=== PATIENT | female | born 1935 | race Caucasian/White ===

== ENCOUNTER 2018-03-23 19:42 | Inpatient (IN) | payer MEDICARE, OTHER ==
[2018-03-23] MEDS ORDERED: morphine 4 MG/ML VIAL (19:50)
[2018-03-23] MEDS ORDERED: FUROSEMIDE 40 MG INJ (19:50)
[2018-03-23] MEDS: NITROGLYCERIN 50 MG/D5W (PMX) 250 ML IV (19:50)
[2018-03-23] MEDS: ONDANSETRON 4 MG INJ IV (19:53)
[2018-03-23] MEDS: FUROSEMIDE 40 MG INJ IV (19:53)
[2018-03-23] MEDS: NITROGLYCERIN 2% 1 GM OINT PKT TD (19:53)
[2018-03-23] MEDS: IPRATROPIUM (NEB) 0.5 MG/2.5 ML AMP INH (20:00)
[2018-03-23] MEDS: ALBUTEROL 0.5% (NEB) 2.5 MG/0.5 ML AMP INH (20:00)
[2018-03-23] MEDS: METHYLPREDNISOLONE 125 MG INJ IV (20:02)
[2018-03-23] MEDS: MAGNESIUM SULFATE 2 GM/50 ML 50 ML IVPB (20:02)
[2018-03-23] MEDS: morphine 2 MG INJ IV (20:03)
[2018-03-23 20:05] LABS: ABNORMAL IP MESSAGE 1; HEMATOCRIT 45.2 % (37.0-47.0); HEMOGLOBIN 13.5 g/dl (12.0-16.0); MEAN CORPUSCULAR HEMOGLOBIN 27.7 pg (29.0-33.0); MEAN CORPUSCULAR HGB CONC 29.9 g/dl (32.0-37.0); MEAN CORPUSCULAR VOLUME 92.8 fl (82.0-101.0); MEAN PLATELET VOLUME 11.1 fl (7.4-10.4); PLATELET COUNT 126 10^3/UL (140-415); RED BLOOD COUNT 4.87 10^6/ul (4.20-5.40); RED CELL DISTRIBUTION WIDTH 15.1 % (11.5-14.5)
[2018-03-23 20:05] LABS: WHITE BLOOD COUNT 20.8 10^3/ul (4.8-10.8)
[2018-03-23 20:12] LABS: ADD MAN DIFF? YES; POSITIVE DIFF @See below
[2018-03-23] MEDS: CEFTRIAXONE 1 GM/50 ML (PMX) 50 ML IVPB (20:29)
[2018-03-23 20:32] LABS: ALANINE AMINOTRANSFERASE 11 IU/L (13-69); ALBUMIN 4.4 g/dl (3.3-4.9); ALBUMIN/GLOBULIN RATIO 1.25; ALKALINE PHOSPHATASE 106 IU/L (42-121); ANION GAP 17 (8-16); ASPARTATE AMINO TRANSFERASE 24 IU/L (15-46); BILIRUBIN,INDIRECT 0.3 mg/dl (0-1.1); BILIRUBIN,TOTAL 0.3 mg/dl (0.2-1.3); BLOOD UREA NITROGEN 27 mg/dl (7-20); CALCIUM 8.8 mg/dl (8.4-10.2); CARBON DIOXIDE 19 mmol/L (21-31); CHLORIDE 105 mmol/L (97-110); CREATININE 1.36 mg/dl (0.44-1.00); GLUCOSE 258 mg/dl (70-220); POTASSIUM 4.4 mmol/L (3.5-5.1); SODIUM 137 mmol/L (135-144); TOTAL PROTEIN 7.9 g/dl (6.1-8.1)
[2018-03-23 20:44] LABS: B-TYPE NATRIURETIC PEPTIDE 1850 PG/ML (0-450); TROPONIN-I 0.031 ng/ml (0.000-0.120)
[2018-03-23] MEDS: AZITHROMYCIN 500MG/NS (PMX) 250 ML IV (20:52)
[2018-03-23 20:58] LABS: INR 0.84; PROTIME 11.6 Sec (11.9-14.9); PT RATIO 0.9
[2018-03-23 20:59] LABS: PARTIAL THROMBOPLASTIN TIME 28.7 Sec (25.0-35.0)
[2018-03-23] MEDS ORDERED: ACETAMINOPHEN 650MG/20.3ML CUP PO (21:00)
[2018-03-23] MEDS: FUROSEMIDE 20 MG INJ IV (21:00)
[2018-03-23] MEDS: IMIPRAMINE 25 MG TAB PO (21:00)
[2018-03-23] MEDS: LISINOPRIL 10 MG TAB PO (21:00)
[2018-03-23 21:04] LABS: ANISOCYTOSIS 1+ (0-0); EOSINOPHILS % (M) 8 % (0-7); GIANT THROMBO% (M) 1 % (0-0); LYMPHOCYTES #M 7.2 10^3/ul (0.8-2.9); LYMPHOCYTES % (M) 35 % (15-51); METAMYELOCYTES #M 0.4 10^3/ul (0.0-0.0); METAMYELOCYTES %M 2 % (0-0); MICROCYTOSIS 1+ (0-0); MONOCYTE #M 0.4 10^3/ul (0.3-0.9); MONOCYTES % (M) 2 % (0-11); MYELOCYTES #M 0.4 10^3/ul (0.0-0.0); MYELOCYTES % (M) 2 % (0-0); PLATELET ESTIMATE NORMAL; POIKILOCYTOSIS 1+ (0-0); POLYCHROMASIA 1+ (0-0); REACTIVE LYMPHOCYTES #M 1.4 10^3/ul (0.0-0.0); REACTIVE LYMPHOCYTES% (M) 7 % (0-0); SEGMENTED NEUTROPHILS (M) % 44 % (39-77); SMUDGE%M 4 % (0-0)
[2018-03-23 21:22] LABS: AADO2 Arterial 340.5 mmHg (7.0-24.0); Arterial Base Excess -3.6 mmol/L (-3.0-3); Arterial Blood Gas Oxygen Sat 99.6 mmHG (95.0-100.0); Arterial COHb 0.3 % (0.0-3.0); Arterial HCO3 23.9 mmol/L (22.0-26.0); Arterial MetHb 0.3 % (0.0-1.5); Arterial Total Hemglobin 13.3 g/dl (12.0-18.0); Arterial pCO2 52.9 mmhg (35-45); Blood Gas IEPAP 15/5; Blood Gas PS 10; MODE MASK - BIPAP; Site LB
[2018-03-23 21:47] LABS: HEMOGLOBIN A1C 6.5 % (0-5.9)
[2018-03-23] MEDS: FAMOTIDINE 20 MG INJ IV (21:59)
[2018-03-23] MEDS ORDERED: GLUCAGON 1 MG INJ IM (22:00)
[2018-03-23] MEDS ORDERED: GLUCOSE GEL 15 GRAM TUBE BUCCAL (22:00)
[2018-03-23] MEDS ORDERED: DEXTROSE 50% 50 ML SYRINGE IV ×2 (22:00)
[2018-03-23] MEDS ORDERED: GLUCOSE GEL 15 GRAM TUBE PO ×2 (22:00)
[2018-03-23 22:11] LABS: ANION GAP 13 (8-16); BLOOD UREA NITROGEN 29 mg/dl (7-20); CALCIUM 8.3 mg/dl (8.4-10.2); CARBON DIOXIDE 23 mmol/L (21-31); CHLORIDE 108 mmol/L (97-110); CREATININE 1.33 mg/dl (0.44-1.00); GLUCOSE 241 mg/dl (70-220); POTASSIUM 5.2 mmol/L (3.5-5.1); SODIUM 139 mmol/L (135-144)
[2018-03-23] MEDS: MONTELUKAST 10 MG TAB PO (23:14)
[2018-03-23] MEDS: ALBUTEROL 0.083% (NEB) 2.5 MG/3 ML AMP NEB (23:15)
[2018-03-23] MEDS: [UNRECOGNIZED DRUG - REMARK] XX (23:30)
[2018-03-24] MEDS: ATORVASTATIN 40 MG TAB PO ×2 (00:10→20:54)
[2018-03-24 00:50] LABS: LACTIC ACID 2.1 mmol/L (0.5-2.0)
[2018-03-24 00:53] LABS: CREATINE KINASE 83 IU/L (23-200)
[2018-03-24 01:06] LABS: CK INDEX 5.2; CK-MB 4.35 ng/ml (0.0-2.4)
[2018-03-24 01:11] LABS: TROPONIN-I 0.288 ng/ml (0.000-0.120)
[2018-03-24] MEDS: ALBUTEROL 0.083% (NEB) 2.5 MG/3 ML AMP NEB ×6 (01:32→20:38)
[2018-03-24] MEDS: ACCU-CHEK XX (02:06)
[2018-03-24 07:14] LABS: AADO2 Arterial 126.9 mmHg (7.0-24.0); Arterial Base Excess -1.3 mmol/L (-3.0-3); Arterial Blood Gas Oxygen Sat 97.7 mmHG (95.0-100.0); Arterial COHb 0.1 % (0.0-3.0); Arterial Fraction of Oxyhgb 97.3 % (93.0-99.0); Arterial HCO3 24.6 mmol/L (22.0-26.0); Arterial MetHb 0.3 % (0.0-1.5); Arterial Total Hemglobin 12.5 g/dl (12.0-18.0); Arterial pCO2 45.8 mmhg (35-45); Blood Gas IEPAP 15/5; Blood Gas PS 10; MODE MASK - BIPAP; Site LB
[2018-03-24] MEDS: CLOPIDOGREL 75 MG TAB PO (08:56)
[2018-03-24] MEDS: ASPIRIN 81 MG TAB PO (08:56)
[2018-03-24] MEDS: GLIMEPIRIDE 2 MG TAB PO (08:57)
[2018-03-24] MEDS: predniSONE 20 MG TAB PO (08:57)
[2018-03-24] MEDS: SPIRONOLACTONE 25 MG TAB PO (08:58)
[2018-03-24] MEDS: MEMANTINE 10 MG TAB PO ×2 (08:58→20:55)
[2018-03-24] MEDS: ESCITALOPRAM 10 MG TAB PO (08:59)
[2018-03-24] MEDS: POTASSIUM CHLORIDE (SR) 8 MEQ CAP PO (09:00)
[2018-03-24] MEDS ORDERED: VANCOMYCIN IV PER PHARMACY XX (09:00)
[2018-03-24] MEDS: ISOSORBIDE MONONITRATE(SR)60 MG TAB PO (09:00)
[2018-03-24] MEDS ORDERED: CEFTRIAXONE 500 MG in SOD CHLORIDE 0.9% 50 ML IVPB ×2 (09:00→20:30)
[2018-03-24] MEDS: INSULIN ASPART [NOVOLOG] 3 ML PEN SC ×4 (09:05→21:04)
[2018-03-24] MEDS: LISINOPRIL 10 MG TAB PO ×2 (09:06→20:54)
[2018-03-24] MEDS: ENOXAPARIN 30 MG/0.3 ML SYG SC (09:06)
[2018-03-24] MEDS: FUROSEMIDE 20 MG INJ IV ×2 (09:07→20:54)
[2018-03-24 09:20] LABS: ANION GAP 17 (8-16); BLOOD UREA NITROGEN 33 mg/dl (7-20); CALCIUM 8.5 mg/dl (8.4-10.2); CARBON DIOXIDE 23 mmol/L (21-31); CHLORIDE 106 mmol/L (97-110); CREATININE 1.28 mg/dl (0.44-1.00); GLUCOSE 275 mg/dl (70-220); SODIUM 141 mmol/L (135-144)
[2018-03-24 09:21] LABS: CREATINE KINASE 45 IU/L (23-200)
[2018-03-24 09:22] LABS: POTASSIUM 5.2 mmol/L (3.5-5.1)
[2018-03-24 09:32] LABS: CK INDEX 10.2; CK-MB 4.58 ng/ml (0.0-2.4)
[2018-03-24 09:40] LABS: TROPONIN-I 0.564 ng/ml (0.000-0.120)
[2018-03-24] MEDS: CEFEPIME 1GM/50 ML (PMX) 50 ML IVPB (10:11)
[2018-03-24] MEDS: morphine 2 MG INJ IV ×3 (11:14→21:15)
[2018-03-24] MEDS: VANCOMYCIN 1.75 GM in SOD CHLORIDE 0.9% 500 ML IVPB (11:26)
[2018-03-24] MEDS: NA POLYST SULFON 15 GM/60 ML BTL PO (13:07)
[2018-03-24] MEDS ORDERED: NITROGLYCERIN (SL) 0.4 MG TAB SL (15:00)
[2018-03-24] MEDS: INSULIN GLARGINE [LANTus] (100 UNITS/ML) SYG SC (20:53)
[2018-03-24] MEDS: FAMOTIDINE 20 MG INJ IV (20:54)
[2018-03-24] MEDS: MONTELUKAST 10 MG TAB PO (20:54)
[2018-03-24] MEDS: IMIPRAMINE 25 MG TAB PO (20:55)
[2018-03-24] MEDS: ISOSORBIDE DINITRATE 20 MG TAB PO (20:55)
[2018-03-25] MEDS: ALBUTEROL 0.083% (NEB) 2.5 MG/3 ML AMP NEB ×6 (01:46→20:29)
[2018-03-25] MEDS: ACCU-CHEK XX (01:48)
[2018-03-25 04:43] LABS: ADD MAN DIFF? NO
[2018-03-25 04:47] LABS: ABNORMAL IP MESSAGE 1; BASOPHILS % 0.1 % (0.0-2.0); HEMATOCRIT 31.9 % (37.0-47.0); HEMOGLOBIN 9.7 g/dl (12.0-16.0); LYMPHOCYTES # 0.9 10^3/ul (0.8-2.9); LYMPHOCYTES % 5.1 % (15.0-51.0); MEAN CORPUSCULAR HEMOGLOBIN 27.6 pg (29.0-33.0); MEAN CORPUSCULAR HGB CONC 30.4 g/dl (32.0-37.0); MEAN CORPUSCULAR VOLUME 90.6 fl (82.0-101.0); MEAN PLATELET VOLUME 11.4 fl (7.4-10.4); MONOCYTE # 1.7 10^3/ul (0.3-0.9); MONOCYTES % 9.5 % (0.0-11.0); NEUTROPHIL # 15.2 10^3/ul (1.6-7.5); NEUTROPHILS % 84.7 % (39.0-77.0); PLATELET COUNT 119 10^3/UL (140-415); RED BLOOD COUNT 3.52 10^6/ul (4.20-5.40); RED CELL DISTRIBUTION WIDTH 15.6 % (11.5-14.5)
[2018-03-25 04:47] LABS: WHITE BLOOD COUNT 17.9 10^3/ul (4.8-10.8)
[2018-03-25 04:55] LABS: POSITIVE DIFF @See below
[2018-03-25 05:35] LABS: ANION GAP 10 (8-16); BLOOD UREA NITROGEN 52 mg/dl (7-20); CALCIUM 8.3 mg/dl (8.4-10.2); CARBON DIOXIDE 27 mmol/L (21-31); CHLORIDE 105 mmol/L (97-110); CREATININE 1.77 mg/dl (0.44-1.00); GLUCOSE 173 mg/dl (70-220); POTASSIUM 4.2 mmol/L (3.5-5.1); SODIUM 138 mmol/L (135-144)
[2018-03-25 05:38] LABS: CHOL/HDL RATIO 2.5 RATIO; CK INDEX 15.7; LDL CHOLESTEROL,CALCULATED 60 mg/dl
[2018-03-25 05:39] LABS: CREATINE KINASE 69 IU/L (23-200); HDL CHOLESTEROL 57 mg/dl (33-92); TRIGLYCERIDES 131 mg/dl (0-149)
[2018-03-25 05:39] LABS: CHOLESTEROL 143 mg/dl (100-200)
[2018-03-25] MEDS ORDERED: HEPARIN 1000 UNITS/ML 10 ML INJ IV (06:00)
[2018-03-25] MEDS: HEPARIN 25000 UNITS/250 ML 250 ML IV (06:28)
[2018-03-25 07:03] LABS: INR 0.91; PROTIME 12.3 Sec (11.9-14.9)
[2018-03-25 07:04] LABS: PARTIAL THROMBOPLASTIN TIME 27.1 Sec (25.0-35.0)
[2018-03-25] MEDS: ASPIRIN 81 MG TAB PO (08:03)
[2018-03-25] MEDS: LISINOPRIL 10 MG TAB PO ×2 (08:03→20:41)
[2018-03-25] MEDS: ESCITALOPRAM 10 MG TAB PO (08:04)
[2018-03-25] MEDS: FUROSEMIDE 20 MG INJ IV (08:04)
[2018-03-25] MEDS: ISOSORBIDE DINITRATE 20 MG TAB PO ×3 (08:04→20:42)
[2018-03-25] MEDS: SPIRONOLACTONE 25 MG TAB PO (08:04)
[2018-03-25] MEDS: CLOPIDOGREL 75 MG TAB PO (08:04)
[2018-03-25] MEDS: MEMANTINE 10 MG TAB PO ×3 (08:04→23:51)
[2018-03-25] MEDS: predniSONE 20 MG TAB PO (08:04)
[2018-03-25] MEDS: INSULIN ASPART [NOVOLOG] 3 ML PEN SC ×4 (08:06→21:40)
[2018-03-25] MEDS ORDERED: ISOSORBIDE MONONITRATE(SR)30 MG TAB PO (09:00)
[2018-03-25] MEDS: CEFEPIME 1GM/50 ML (PMX) 50 ML IVPB (10:23)
[2018-03-25] MEDS: VANCOMYCIN 1 GM 250 ML IVPB (11:03)
[2018-03-25 12:52] LABS: PARTIAL THROMBOPLASTIN TIME 27.2 Sec (25.0-35.0)
[2018-03-25] MEDS: BISACODYL (EC) 5 MG TAB PO (14:39)
[2018-03-25] MEDS: NA PHOSPHATE/BIPHOS 133 ML ENEMA PR ×2 (14:39→16:09)
[2018-03-25] MEDS: morphine 2 MG INJ IV ×2 (16:11→17:27)
[2018-03-25] MEDS: ENOXAPARIN 100 MG/ML SYG SC (17:56)
[2018-03-25] MEDS: INSULIN GLARGINE [LANTus] (100 UNITS/ML) SYG SC (20:00)
[2018-03-25] MEDS: ATORVASTATIN 40 MG TAB PO (20:41)
[2018-03-25] MEDS: FAMOTIDINE 20 MG INJ IV (20:41)
[2018-03-25] MEDS: MONTELUKAST 10 MG TAB PO ×2 (21:00→23:51)
[2018-03-25] MEDS: IMIPRAMINE 25 MG TAB PO ×2 (21:00→23:52)
[2018-03-26] MEDS: ALBUTEROL 0.083% (NEB) 2.5 MG/3 ML AMP NEB ×6 (00:43→20:31)
[2018-03-26] MEDS: ACCU-CHEK XX (02:00)
[2018-03-26 06:25] LABS: CREATINE KINASE 65 IU/L (23-200)
[2018-03-26 06:32] LABS: CK-MB 7.81 ng/ml (0.0-2.4)
[2018-03-26] MEDS: INSULIN ASPART [NOVOLOG] 3 ML PEN SC ×4 (08:06→20:43)
[2018-03-26] MEDS: SPIRONOLACTONE 25 MG TAB PO (08:07)
[2018-03-26] MEDS: MEMANTINE 10 MG TAB PO ×2 (08:07→21:26)
[2018-03-26] MEDS: ESCITALOPRAM 10 MG TAB PO (08:07)
[2018-03-26] MEDS: CLOPIDOGREL 75 MG TAB PO (08:07)
[2018-03-26] MEDS: ASPIRIN 81 MG TAB PO (08:07)
[2018-03-26] MEDS: LISINOPRIL 10 MG TAB PO ×2 (08:07→21:25)
[2018-03-26] MEDS: ISOSORBIDE DINITRATE 20 MG TAB PO ×3 (08:08→21:25)
[2018-03-26] MEDS: predniSONE 20 MG TAB PO (08:08)
[2018-03-26] MEDS: FUROSEMIDE 20 MG INJ IV ×2 (08:20→15:29)
[2018-03-26] MEDS: CEFEPIME 1GM/50 ML (PMX) 50 ML IVPB (09:30)
[2018-03-26] MEDS: VANCOMYCIN 1 GM 250 ML IVPB (11:43)
[2018-03-26] MEDS: ENOXAPARIN 100 MG/ML SYG SC (17:32)
[2018-03-26] MEDS: INSULIN GLARGINE [LANTus] (100 UNITS/ML) SYG SC (20:08)
[2018-03-26] MEDS: FAMOTIDINE 20 MG INJ IV (21:25)
[2018-03-26] MEDS: ATORVASTATIN 40 MG TAB PO (21:25)
[2018-03-26] MEDS: MONTELUKAST 10 MG TAB PO (21:26)
[2018-03-26] MEDS: IMIPRAMINE 25 MG TAB PO (21:27)
[2018-03-27] MEDS: ALBUTEROL 0.083% (NEB) 2.5 MG/3 ML AMP NEB ×6 (00:54→21:44)
[2018-03-27] MEDS: ACCU-CHEK XX (02:00)
[2018-03-27] MEDS: MEMANTINE 10 MG TAB PO ×2 (09:09→21:35)
[2018-03-27] MEDS: ESCITALOPRAM 10 MG TAB PO (09:09)
[2018-03-27] MEDS: CLOPIDOGREL 75 MG TAB PO (09:09)
[2018-03-27] MEDS: ASPIRIN 81 MG TAB PO (09:09)
[2018-03-27] MEDS: FUROSEMIDE 20 MG INJ IV (09:10)
[2018-03-27] MEDS: predniSONE 20 MG TAB PO (09:10)
[2018-03-27] MEDS: SPIRONOLACTONE 25 MG TAB PO (09:10)
[2018-03-27] MEDS: LISINOPRIL 10 MG TAB PO ×2 (09:10→21:35)
[2018-03-27] MEDS: CEFEPIME 1GM/50 ML (PMX) 50 ML IVPB (09:11)
[2018-03-27] MEDS: ISOSORBIDE DINITRATE 20 MG TAB PO ×3 (09:11→21:35)
[2018-03-27] MEDS: INSULIN ASPART [NOVOLOG] 3 ML PEN SC ×4 (09:24→21:37)
[2018-03-27 10:02] LABS: ADD MAN DIFF? NO
[2018-03-27 10:07] LABS: WHITE BLOOD COUNT 13.1 10^3/ul (4.8-10.8)
[2018-03-27 10:07] LABS: BASOPHILS % 0.2 % (0.0-2.0); EOSINOPHILS # 0.1 10^3/ul (0.0-0.5); EOSINOPHILS % 0.8 % (0.0-7.0); HEMOGLOBIN 10.4 g/dl (12.0-16.0); LYMPHOCYTES # 1.5 10^3/ul (0.8-2.9); LYMPHOCYTES % 11.5 % (15.0-51.0); MEAN CORPUSCULAR HEMOGLOBIN 27.5 pg (29.0-33.0); MEAN CORPUSCULAR HGB CONC 30.6 g/dl (32.0-37.0); MEAN CORPUSCULAR VOLUME 89.9 fl (82.0-101.0); MEAN PLATELET VOLUME 11.1 fl (7.4-10.4); MONOCYTE # 1.4 10^3/ul (0.3-0.9); MONOCYTES % 10.5 % (0.0-11.0); NEUTROPHILS % 76.5 % (39.0-77.0); PLATELET COUNT 161 10^3/UL (140-415); RED BLOOD COUNT 3.78 10^6/ul (4.20-5.40); RED CELL DISTRIBUTION WIDTH 15.9 % (11.5-14.5)
[2018-03-27 10:33] LABS: VANCOMYCIN,TROUGH 12.8 ug/ml (10.0-20.0)
[2018-03-27 10:34] LABS: CREATINE KINASE 89 IU/L (23-200)
[2018-03-27 10:35] LABS: BLOOD UREA NITROGEN 50 mg/dl (7-20)
[2018-03-27 10:35] LABS: CREATININE 1.37 mg/dl (0.44-1.00)
[2018-03-27 10:43] LABS: CK INDEX 4.3; CK-MB 3.85 ng/ml (0.0-2.4)
[2018-03-27 10:44] LABS: TROPONIN-I 0.977 ng/ml (0.000-0.120)
[2018-03-27] MEDS: VANCOMYCIN 1 GM 250 ML IVPB (10:47)
[2018-03-27] MEDS: DOCUSATE SODIUM 100 MG CAP PO (11:22)
[2018-03-27] MEDS: FUROSEMIDE 40 MG INJ IV (16:14)
[2018-03-27] MEDS: ENOXAPARIN 100 MG/ML SYG SC (17:18)
[2018-03-27] MEDS: ATORVASTATIN 40 MG TAB PO (21:34)
[2018-03-27] MEDS: FAMOTIDINE 20 MG INJ IV (21:34)
[2018-03-27] MEDS: MONTELUKAST 10 MG TAB PO (21:35)
[2018-03-27] MEDS: INSULIN GLARGINE [LANTus] (100 UNITS/ML) SYG SC (21:38)
[2018-03-27] MEDS: IMIPRAMINE 25 MG TAB PO (22:47)
[2018-03-28] MEDS: ALBUTEROL 0.083% (NEB) 2.5 MG/3 ML AMP NEB ×6 (01:40→20:52)
[2018-03-28] MEDS: ACCU-CHEK XX (02:00)
[2018-03-28] MEDS: ESCITALOPRAM 10 MG TAB PO (08:15)
[2018-03-28] MEDS: MEMANTINE 10 MG TAB PO ×2 (08:15→21:07)
[2018-03-28] MEDS: predniSONE 5 MG TAB PO (08:15)
[2018-03-28] MEDS: CLOPIDOGREL 75 MG TAB PO (08:15)
[2018-03-28] MEDS: SPIRONOLACTONE 25 MG TAB PO (08:16)
[2018-03-28] MEDS: ASPIRIN 81 MG TAB PO (08:16)
[2018-03-28] MEDS: DOCUSATE SODIUM 100 MG CAP PO (08:16)
[2018-03-28] MEDS: FUROSEMIDE 40 MG INJ IV (08:21)
[2018-03-28] MEDS: LISINOPRIL 10 MG TAB PO ×2 (08:21→21:06)
[2018-03-28] MEDS: ISOSORBIDE DINITRATE 20 MG TAB PO ×3 (08:21→21:07)
[2018-03-28] MEDS: INSULIN ASPART [NOVOLOG] 3 ML PEN SC ×4 (08:34→21:04)
[2018-03-28] MEDS: CEFEPIME 1GM/50 ML (PMX) 50 ML IVPB (10:09)
[2018-03-28] MEDS: VANCOMYCIN 1 GM 250 ML IVPB (11:19)
[2018-03-28] MEDS: NA PHOSPHATE/BIPHOS 133 ML ENEMA PR (15:02)
[2018-03-28] MEDS: ENOXAPARIN 100 MG/ML SYG SC (17:24)
[2018-03-28] MEDS: INSULIN GLARGINE [LANTus] (100 UNITS/ML) SYG SC (21:05)
[2018-03-28] MEDS: MONTELUKAST 10 MG TAB PO (21:06)
[2018-03-28] MEDS: ATORVASTATIN 40 MG TAB PO (21:06)
[2018-03-28] MEDS: FAMOTIDINE 20 MG INJ IV (21:07)
[2018-03-28] MEDS: IMIPRAMINE 25 MG TAB PO (21:07)
[2018-03-29] MEDS: ALBUTEROL 0.083% (NEB) 2.5 MG/3 ML AMP NEB ×6 (01:00→20:31)
[2018-03-29] MEDS: ACCU-CHEK XX (02:29)
[2018-03-29] MEDS: ESCITALOPRAM 10 MG TAB PO (07:58)
[2018-03-29] MEDS: ASPIRIN 81 MG TAB PO (07:58)
[2018-03-29] MEDS: MEMANTINE 10 MG TAB PO ×2 (07:58→21:22)
[2018-03-29] MEDS: CLOPIDOGREL 75 MG TAB PO (07:58)
[2018-03-29] MEDS: FUROSEMIDE 40 MG INJ IV ×2 (07:59→17:26)
[2018-03-29] MEDS: DOCUSATE SODIUM 100 MG CAP PO (07:59)
[2018-03-29] MEDS: LISINOPRIL 10 MG TAB PO ×2 (07:59→21:22)
[2018-03-29] MEDS: ISOSORBIDE DINITRATE 20 MG TAB PO ×3 (07:59→21:22)
[2018-03-29] MEDS: SPIRONOLACTONE 25 MG TAB PO (08:00)
[2018-03-29] MEDS: INSULIN ASPART [NOVOLOG] 3 ML PEN SC ×4 (08:02→21:28)
[2018-03-29] MEDS: CEFEPIME 1GM/50 ML (PMX) 50 ML IVPB (08:09)
[2018-03-29 08:40] LABS: CREATININE 1.28 mg/dl (0.44-1.00)
[2018-03-29 08:40] LABS: BLOOD UREA NITROGEN 39 mg/dl (7-20)
[2018-03-29] MEDS: VANCOMYCIN 1 GM 250 ML IVPB (09:57)
[2018-03-29] MEDS: ENOXAPARIN 40 MG/0.4 ML SYG SC (17:35)
[2018-03-29] MEDS: MONTELUKAST 10 MG TAB PO (21:21)
[2018-03-29] MEDS: ATORVASTATIN 40 MG TAB PO (21:21)
[2018-03-29] MEDS: IMIPRAMINE 25 MG TAB PO (21:22)
[2018-03-29] MEDS: FAMOTIDINE 20 MG INJ IV (21:23)
[2018-03-29] MEDS: INSULIN GLARGINE [LANTus] (100 UNITS/ML) SYG SC (21:29)
[2018-03-30] MEDS: ALBUTEROL 0.083% (NEB) 2.5 MG/3 ML AMP NEB ×6 (01:50→21:37)
[2018-03-30] MEDS: ACCU-CHEK XX (02:00)
[2018-03-30] MEDS: FUROSEMIDE 40 MG INJ IV ×2 (06:01→17:36)
[2018-03-30 06:37] LABS: TROPONIN-I 0.337 ng/ml (0.000-0.120)
[2018-03-30] MEDS: INSULIN ASPART [NOVOLOG] 3 ML PEN SC ×4 (07:47→21:00)
[2018-03-30] MEDS: DOCUSATE SODIUM 100 MG CAP PO (08:16)
[2018-03-30] MEDS: CLOPIDOGREL 75 MG TAB PO (08:16)
[2018-03-30] MEDS: ESCITALOPRAM 10 MG TAB PO (08:16)
[2018-03-30] MEDS: SPIRONOLACTONE 25 MG TAB PO (08:16)
[2018-03-30] MEDS: MEMANTINE 10 MG TAB PO ×2 (08:17→20:58)
[2018-03-30] MEDS: ISOSORBIDE DINITRATE 20 MG TAB PO ×3 (08:17→20:58)
[2018-03-30] MEDS: ASPIRIN 81 MG TAB PO (08:17)
[2018-03-30] MEDS: LISINOPRIL 10 MG TAB PO ×2 (08:17→20:59)
[2018-03-30] MEDS: CEFEPIME 1GM/50 ML (PMX) 50 ML IVPB (10:01)
[2018-03-30] MEDS: VANCOMYCIN 1 GM 250 ML IVPB (10:01)
[2018-03-30] MEDS: REGADENOSON 0.4 MG/5 ML SYG (13:55)
[2018-03-30] MEDS: ENOXAPARIN 40 MG/0.4 ML SYG SC (17:34)
[2018-03-30] MEDS: MONTELUKAST 10 MG TAB PO (20:58)
[2018-03-30] MEDS: ATORVASTATIN 40 MG TAB PO (20:58)
[2018-03-30] MEDS: FAMOTIDINE 20 MG INJ IV (20:59)
[2018-03-30] MEDS: IMIPRAMINE 25 MG TAB PO (21:00)
[2018-03-30] MEDS: INSULIN GLARGINE [LANTus] (100 UNITS/ML) SYG SC (21:04)
[2018-03-31] MEDS: ALBUTEROL 0.083% (NEB) 2.5 MG/3 ML AMP NEB ×6 (01:30→20:26)
[2018-03-31] MEDS: ACCU-CHEK XX (02:00)
[2018-03-31 06:12] LABS: ADD MAN DIFF? NO
[2018-03-31 06:17] LABS: BASOPHILS % 0.3 % (0.0-2.0); EOSINOPHILS # 0.8 10^3/ul (0.0-0.5); EOSINOPHILS % 5.4 % (0.0-7.0); HEMATOCRIT 36.7 % (37.0-47.0); HEMOGLOBIN 11.3 g/dl (12.0-16.0); LYMPHOCYTES # 1.4 10^3/ul (0.8-2.9); LYMPHOCYTES % 9.8 % (15.0-51.0); MEAN CORPUSCULAR HEMOGLOBIN 28.2 pg (29.0-33.0); MEAN CORPUSCULAR HGB CONC 30.8 g/dl (32.0-37.0); MEAN CORPUSCULAR VOLUME 91.5 fl (82.0-101.0); MEAN PLATELET VOLUME 10.5 fl (7.4-10.4); MONOCYTE # 1.3 10^3/ul (0.3-0.9); NEUTROPHIL # 10.7 10^3/ul (1.6-7.5); NEUTROPHILS % 74.9 % (39.0-77.0); PLATELET COUNT 188 10^3/UL (140-415); RED BLOOD COUNT 4.01 10^6/ul (4.20-5.40); RED CELL DISTRIBUTION WIDTH 15.1 % (11.5-14.5)
[2018-03-31 06:17] LABS: WHITE BLOOD COUNT 14.3 10^3/ul (4.8-10.8)
[2018-03-31] MEDS: FUROSEMIDE 40 MG INJ IV ×2 (06:41→17:59)
[2018-03-31 06:49] LABS: ANION GAP 8 (8-16); BLOOD UREA NITROGEN 30 mg/dl (7-20); CARBON DIOXIDE 39 mmol/L (21-31); CHLORIDE 96 mmol/L (97-110); CREATININE 1.24 mg/dl (0.44-1.00); GLUCOSE 185 mg/dl (70-220); POTASSIUM 5.1 mmol/L (3.5-5.1); SODIUM 138 mmol/L (135-144)
[2018-03-31] MEDS: INSULIN ASPART [NOVOLOG] 3 ML PEN SC ×4 (07:59→21:43)
[2018-03-31] MEDS: LISINOPRIL 10 MG TAB PO ×2 (09:28→21:28)
[2018-03-31] MEDS: ASPIRIN 81 MG TAB PO (09:30)
[2018-03-31] MEDS: SPIRONOLACTONE 25 MG TAB PO (09:30)
[2018-03-31] MEDS: ISOSORBIDE DINITRATE 20 MG TAB PO ×3 (09:30→21:28)
[2018-03-31] MEDS: MEMANTINE 10 MG TAB PO ×2 (09:31→21:28)
[2018-03-31] MEDS: DOCUSATE SODIUM 100 MG CAP PO (09:31)
[2018-03-31] MEDS: CLOPIDOGREL 75 MG TAB PO (09:31)
[2018-03-31] MEDS: CEFEPIME 1GM/50 ML (PMX) 50 ML IVPB (09:32)
[2018-03-31] MEDS: ESCITALOPRAM 10 MG TAB PO (09:34)
[2018-03-31] MEDS: VANCOMYCIN 1 GM 250 ML IVPB (11:45)
[2018-03-31] MEDS ORDERED: DEXTROSE 5%-0.45% NACL 1,000 ML IV (15:30)
[2018-03-31] MEDS: SOD CHLORIDE 0.45% 1,000 ML IV (16:06)
[2018-03-31] MEDS: ENOXAPARIN 40 MG/0.4 ML SYG SC (18:11)
[2018-03-31] MEDS: ATORVASTATIN 40 MG TAB PO (21:27)
[2018-03-31] MEDS: IMIPRAMINE 25 MG TAB PO (21:28)
[2018-03-31] MEDS: MONTELUKAST 10 MG TAB PO (21:28)
[2018-03-31] MEDS: INSULIN GLARGINE [LANTus] (100 UNITS/ML) SYG SC (21:31)
[2018-03-31] MEDS: FAMOTIDINE 20 MG INJ IV (21:34)
[2018-04-01] MEDS: ALBUTEROL 0.083% (NEB) 2.5 MG/3 ML AMP NEB ×6 (00:08→20:33)
[2018-04-01] MEDS: ACCU-CHEK XX (02:00)
[2018-04-01] MEDS: FUROSEMIDE 40 MG INJ IV ×2 (06:10→17:10)
[2018-04-01 06:49] LABS: ADD MAN DIFF? NO
[2018-04-01 06:53] LABS: WHITE BLOOD COUNT 12.8 10^3/ul (4.8-10.8)
[2018-04-01 06:54] LABS: BASOPHILS % 0.2 % (0.0-2.0); EOSINOPHILS # 0.8 10^3/ul (0.0-0.5); HEMATOCRIT 36.4 % (37.0-47.0); HEMOGLOBIN 11.1 g/dl (12.0-16.0); LYMPHOCYTES # 1.4 10^3/ul (0.8-2.9); LYMPHOCYTES % 10.8 % (15.0-51.0); MEAN CORPUSCULAR HEMOGLOBIN 27.6 pg (29.0-33.0); MEAN CORPUSCULAR HGB CONC 30.5 g/dl (32.0-37.0); MEAN CORPUSCULAR VOLUME 90.5 fl (82.0-101.0); MEAN PLATELET VOLUME 10.9 fl (7.4-10.4); MONOCYTE # 1.2 10^3/ul (0.3-0.9); MONOCYTES % 9.3 % (0.0-11.0); NEUTROPHIL # 9.4 10^3/ul (1.6-7.5); NEUTROPHILS % 72.9 % (39.0-77.0); PLATELET COUNT 175 10^3/UL (140-415); RED BLOOD COUNT 4.02 10^6/ul (4.20-5.40); RED CELL DISTRIBUTION WIDTH 15.2 % (11.5-14.5)
[2018-04-01 07:25] LABS: ANION GAP 11 (8-16); BLOOD UREA NITROGEN 33 mg/dl (7-20); CALCIUM 8.8 mg/dl (8.4-10.2); CARBON DIOXIDE 34 mmol/L (21-31); CHLORIDE 95 mmol/L (97-110); CREATININE 1.58 mg/dl (0.44-1.00); GLUCOSE 186 mg/dl (70-220); POTASSIUM 4.5 mmol/L (3.5-5.1); SODIUM 135 mmol/L (135-144)
[2018-04-01] MEDS: INSULIN ASPART [NOVOLOG] 3 ML PEN SC ×4 (07:51→22:00)
[2018-04-01] MEDS: CLOPIDOGREL 75 MG TAB PO (08:50)
[2018-04-01] MEDS: MEMANTINE 10 MG TAB PO ×2 (08:50→22:02)
[2018-04-01] MEDS: ISOSORBIDE DINITRATE 20 MG TAB PO ×3 (08:50→22:01)
[2018-04-01] MEDS: ASPIRIN 81 MG TAB PO (08:50)
[2018-04-01] MEDS: SPIRONOLACTONE 25 MG TAB PO (08:50)
[2018-04-01] MEDS: ESCITALOPRAM 10 MG TAB PO (08:50)
[2018-04-01] MEDS: DOCUSATE SODIUM 100 MG CAP PO (08:51)
[2018-04-01] MEDS: LISINOPRIL 10 MG TAB PO ×2 (08:51→22:01)
[2018-04-01] MEDS: CEFEPIME 1GM/50 ML (PMX) 50 ML IVPB (14:28)
[2018-04-01] MEDS: SOD CHLORIDE 0.45% 1,000 ML IV (15:36)
[2018-04-01] MEDS: ENOXAPARIN 30 MG/0.3 ML SYG SC (17:10)
[2018-04-01] MEDS: IMIPRAMINE 25 MG TAB PO (22:00)
[2018-04-01] MEDS: LORAZEPAM 0.5 MG TAB PO (22:00)
[2018-04-01] MEDS: ATORVASTATIN 40 MG TAB PO (22:01)
[2018-04-01] MEDS: MONTELUKAST 10 MG TAB PO (22:02)
[2018-04-01] MEDS: MAGNESIUM HYDROXIDE 30ML CUP PO (22:10)
[2018-04-01] MEDS: INSULIN GLARGINE [LANTus] (100 UNITS/ML) SYG SC (22:31)
[2018-04-02] MEDS: ALBUTEROL 0.083% (NEB) 2.5 MG/3 ML AMP NEB ×6 (02:09→20:20)
[2018-04-02] MEDS: ACCU-CHEK XX (02:21)
[2018-04-02] MEDS: FUROSEMIDE 40 MG INJ IV (06:13)
[2018-04-02 06:44] LABS: CREATINE KINASE 33 IU/L (23-200)
[2018-04-02 06:44] LABS: URIC ACID 9.7 mg/dl (3.1-7.9)
[2018-04-02 06:53] LABS: ANION GAP 12 (8-16); BLOOD UREA NITROGEN 47 mg/dl (7-20); CARBON DIOXIDE 29 mmol/L (21-31); CHLORIDE 96 mmol/L (97-110); CREATININE 1.69 mg/dl (0.44-1.00); POTASSIUM 4.5 mmol/L (3.5-5.1); SODIUM 132 mmol/L (135-144)
[2018-04-02 07:00] LABS: CALCIUM 8.2 mg/dl (8.4-10.2); GLUCOSE 167 mg/dl (70-220)
[2018-04-02] MEDS: INSULIN ASPART [NOVOLOG] 3 ML PEN SC ×5 (08:03→20:58)
[2018-04-02] MEDS: ISOSORBIDE DINITRATE 20 MG TAB PO ×2 (09:00→12:08)
[2018-04-02] MEDS: MEMANTINE 10 MG TAB PO ×2 (09:07→20:46)
[2018-04-02] MEDS: DOCUSATE SODIUM 100 MG CAP PO (09:07)
[2018-04-02] MEDS: CLOPIDOGREL 75 MG TAB PO (09:07)
[2018-04-02] MEDS: SPIRONOLACTONE 25 MG TAB PO (09:07)
[2018-04-02] MEDS: LISINOPRIL 10 MG TAB PO ×2 (09:07→20:46)
[2018-04-02] MEDS: ASPIRIN 81 MG TAB PO (09:07)
[2018-04-02] MEDS: ESCITALOPRAM 10 MG TAB PO (09:07)
[2018-04-02] MEDS: CEFEPIME 1GM/50 ML (PMX) 50 ML IVPB (12:07)
[2018-04-02 14:30] LABS: SODIUM,URINE RANDOM 48 mmol/L (30-90)
[2018-04-02 14:39] LABS: CREATININE,URINE RANDOM 95.64 mg/dl (20-320); PROTEIN/CREAT RATIO 0.12 RATIO
[2018-04-02] MEDS: HYDROCORTISONE 1% 28.35 GM OINT TOP ×2 (14:54→20:48)
[2018-04-02] MEDS: SOD CHLORIDE 0.45% 1,000 ML IV ×3 (15:50→23:39)
[2018-04-02] MEDS: ENOXAPARIN 30 MG/0.3 ML SYG SC (17:06)
[2018-04-02] MEDS: DIPHENHYDRAMINE 25 MG CAP PO ×2 (17:39→23:39)
[2018-04-02] MEDS: MONTELUKAST 10 MG TAB PO (20:46)
[2018-04-02] MEDS: ATORVASTATIN 40 MG TAB PO (20:47)
[2018-04-02] MEDS: ISOSORBIDE DINITRATE 10 MG TAB PO (20:48)
[2018-04-02] MEDS: INSULIN GLARGINE [LANTus] (100 UNITS/ML) SYG SC (20:59)
[2018-04-02] MEDS: IMIPRAMINE 25 MG TAB PO (21:03)
[2018-04-03] MEDS: ALBUTEROL 0.083% (NEB) 2.5 MG/3 ML AMP NEB ×6 (00:25→20:11)
[2018-04-03] MEDS: ACCU-CHEK XX (02:10)
[2018-04-03] MEDS: DIPHENHYDRAMINE 25 MG CAP PO ×3 (04:12→22:34)
[2018-04-03] MEDS: FUROSEMIDE 40 MG INJ IV (05:47)
[2018-04-03] MEDS: LEVOFLOXACIN 500 MG TAB PO (06:48)
[2018-04-03 07:08] LABS: ANION GAP 13 (8-16); BLOOD UREA NITROGEN 55 mg/dl (7-20); CALCIUM 8.1 mg/dl (8.4-10.2); CARBON DIOXIDE 26 mmol/L (21-31); CHLORIDE 95 mmol/L (97-110); CREATININE 1.81 mg/dl (0.44-1.00); GLUCOSE 197 mg/dl (70-220); POTASSIUM 4.6 mmol/L (3.5-5.1); SODIUM 129 mmol/L (135-144)
[2018-04-03] MEDS: INSULIN ASPART [NOVOLOG] 3 ML PEN SC ×7 (07:51→20:42)
[2018-04-03] MEDS: ASPIRIN 81 MG TAB PO (08:51)
[2018-04-03] MEDS: ESCITALOPRAM 10 MG TAB PO (08:51)
[2018-04-03] MEDS: LISINOPRIL 10 MG TAB PO ×2 (08:51→20:42)
[2018-04-03] MEDS: ISOSORBIDE DINITRATE 10 MG TAB PO ×3 (08:51→20:41)
[2018-04-03] MEDS: SPIRONOLACTONE 25 MG TAB PO (08:51)
[2018-04-03] MEDS: MEMANTINE 10 MG TAB PO ×2 (08:51→20:41)
[2018-04-03] MEDS: CLOPIDOGREL 75 MG TAB PO (08:51)
[2018-04-03] MEDS: LORATADINE 10 MG TAB PO (08:51)
[2018-04-03] MEDS: DOCUSATE SODIUM 100 MG CAP PO (08:52)
[2018-04-03] MEDS: TRIAMCINOLONE ACET 0.1% 15 GM CR TOP ×2 (08:52→21:28)
[2018-04-03] MEDS: traMADol 50 MG TAB PO (15:29)
[2018-04-03] MEDS: MAGNESIUM HYDROXIDE 30ML CUP PO (17:26)
[2018-04-03] MEDS: SOD CHLORIDE 0.9% 1,000 ML IV (17:26)
[2018-04-03] MEDS: ENOXAPARIN 30 MG/0.3 ML SYG SC (17:41)
[2018-04-03] MEDS: IMIPRAMINE 25 MG TAB PO (20:41)
[2018-04-03] MEDS: MONTELUKAST 10 MG TAB PO (20:41)
[2018-04-03] MEDS: ATORVASTATIN 40 MG TAB PO (20:41)
[2018-04-03] MEDS: INSULIN GLARGINE [LANTus] (100 UNITS/ML) SYG SC (20:48)
[2018-04-04] MEDS: ALBUTEROL 0.083% (NEB) 2.5 MG/3 ML AMP NEB ×6 (00:33→20:53)
[2018-04-04] MEDS: LORAZEPAM 0.5 MG TAB PO (00:44)
[2018-04-04] MEDS: ACCU-CHEK XX (02:00)
[2018-04-04 06:06] LABS: ADD MAN DIFF? NO
[2018-04-04 06:19] LABS: BASOPHILS % 0.1 % (0.0-2.0); EOSINOPHILS # 1.1 10^3/ul (0.0-0.5); EOSINOPHILS % 7.2 % (0.0-7.0); HEMATOCRIT 34.7 % (37.0-47.0); HEMOGLOBIN 10.9 g/dl (12.0-16.0); LYMPHOCYTES # 0.9 10^3/ul (0.8-2.9); LYMPHOCYTES % 6.4 % (15.0-51.0); MEAN CORPUSCULAR HGB CONC 31.4 g/dl (32.0-37.0); MEAN CORPUSCULAR VOLUME 89.2 fl (82.0-101.0); MEAN PLATELET VOLUME 11.7 fl (7.4-10.4); NEUTROPHIL # 11.6 10^3/ul (1.6-7.5); NEUTROPHILS % 78.4 % (39.0-77.0); NUCLEATED RED BLOOD CELLS% 0.1 /100WBC (0.0-0.0); PLATELET COUNT 137 10^3/UL (140-415); RED BLOOD COUNT 3.89 10^6/ul (4.20-5.40); RED CELL DISTRIBUTION WIDTH 15.6 % (11.5-14.5)
[2018-04-04 06:19] LABS: WHITE BLOOD COUNT 14.8 10^3/ul (4.8-10.8)
[2018-04-04] MEDS: LEVOFLOXACIN 500 MG TAB PO (06:58)
[2018-04-04 07:10] LABS: URIC ACID 10.2 mg/dl (3.1-7.9)
[2018-04-04 07:11] LABS: ANION GAP 11 (8-16); BLOOD UREA NITROGEN 65 mg/dl (7-20); CALCIUM 8.2 mg/dl (8.4-10.2); CARBON DIOXIDE 28 mmol/L (21-31); CHLORIDE 95 mmol/L (97-110); CREATININE 1.85 mg/dl (0.44-1.00); GLUCOSE 166 mg/dl (70-220); POTASSIUM 5.3 mmol/L (3.5-5.1); SODIUM 129 mmol/L (135-144)
[2018-04-04 07:17] LABS: B-TYPE NATRIURETIC PEPTIDE 1040 PG/ML (0-450)
[2018-04-04] MEDS: SPIRONOLACTONE 25 MG TAB PO (08:06)
[2018-04-04] MEDS: ESCITALOPRAM 10 MG TAB PO (08:06)
[2018-04-04] MEDS: DOCUSATE SODIUM 100 MG CAP PO (08:06)
[2018-04-04] MEDS: CLOPIDOGREL 75 MG TAB PO (08:07)
[2018-04-04] MEDS: MEMANTINE 10 MG TAB PO ×2 (08:07→21:04)
[2018-04-04] MEDS: LORATADINE 10 MG TAB PO (08:07)
[2018-04-04] MEDS: ISOSORBIDE DINITRATE 10 MG TAB PO ×3 (08:07→21:03)
[2018-04-04] MEDS: ASPIRIN 81 MG TAB PO (08:07)
[2018-04-04] MEDS: LISINOPRIL 10 MG TAB PO (08:08)
[2018-04-04] MEDS: TRIAMCINOLONE ACET 0.1% 15 GM CR TOP ×2 (08:08→21:05)
[2018-04-04] MEDS: INSULIN ASPART [NOVOLOG] 3 ML PEN SC ×7 (08:16→21:00)
[2018-04-04] MEDS: SOD CHLORIDE 0.9% 1,000 ML IV (09:36)
[2018-04-04] MEDS: DIPHENHYDRAMINE 25 MG CAP PO ×2 (13:02→21:12)
[2018-04-04] MEDS: ENOXAPARIN 30 MG/0.3 ML SYG SC (17:02)
[2018-04-04] MEDS: ATORVASTATIN 40 MG TAB PO (21:04)
[2018-04-04] MEDS: IMIPRAMINE 25 MG TAB PO (21:04)
[2018-04-04] MEDS: MONTELUKAST 10 MG TAB PO (21:04)
[2018-04-04] MEDS: INSULIN GLARGINE [LANTus] (100 UNITS/ML) SYG SC (21:08)
[2018-04-04] MEDS: MAGNESIUM HYDROXIDE 30ML CUP PO (21:12)
[2018-04-04] MEDS: morphine LIQ (10 MG/5 ML) CUP PO (21:35)
[2018-04-05] MEDS: ALBUTEROL 0.083% (NEB) 2.5 MG/3 ML AMP NEB ×6 (00:10→21:20)
[2018-04-05] MEDS: ACCU-CHEK XX (02:00)
[2018-04-05] MEDS: METHYLPREDNISOLONE 125 MG INJ IV (02:38)
[2018-04-05] MEDS: SOD CHLORIDE 0.9% 1,000 ML IV (02:38)
[2018-04-05 05:47] LABS: ADD MAN DIFF? NO
[2018-04-05 06:00] LABS: WHITE BLOOD COUNT 15.3 10^3/ul (4.8-10.8)
[2018-04-05 06:00] LABS: ABNORMAL IP MESSAGE 1; BASOPHILS % 0.1 % (0.0-2.0); EOSINOPHILS # 0.7 10^3/ul (0.0-0.5); EOSINOPHILS % 4.8 % (0.0-7.0); HEMATOCRIT 34.6 % (37.0-47.0); HEMOGLOBIN 10.7 g/dl (12.0-16.0); LYMPHOCYTES # 0.5 10^3/ul (0.8-2.9); LYMPHOCYTES % 3.4 % (15.0-51.0); MEAN CORPUSCULAR HEMOGLOBIN 27.7 pg (29.0-33.0); MEAN CORPUSCULAR HGB CONC 30.9 g/dl (32.0-37.0); MEAN CORPUSCULAR VOLUME 89.6 fl (82.0-101.0); MEAN PLATELET VOLUME 11.3 fl (7.4-10.4); MONOCYTE # 0.3 10^3/ul (0.3-0.9); MONOCYTES % 2.2 % (0.0-11.0); NEUTROPHIL # 13.6 10^3/ul (1.6-7.5); NEUTROPHILS % 88.7 % (39.0-77.0); PLATELET COUNT 122 10^3/UL (140-415); RED BLOOD COUNT 3.86 10^6/ul (4.20-5.40); RED CELL DISTRIBUTION WIDTH 15.6 % (11.5-14.5)
[2018-04-05 06:13] LABS: POSITIVE DIFF @See below
[2018-04-05] MEDS: LEVOFLOXACIN 250 MG TAB PO (06:14)
[2018-04-05 06:36] LABS: ANION GAP 12 (8-16); BLOOD UREA NITROGEN 56 mg/dl (7-20); CALCIUM 8.2 mg/dl (8.4-10.2); CARBON DIOXIDE 28 mmol/L (21-31); CHLORIDE 97 mmol/L (97-110); CREATININE 1.67 mg/dl (0.44-1.00); GLUCOSE 178 mg/dl (70-220); POTASSIUM 5.8 mmol/L (3.5-5.1); SODIUM 131 mmol/L (135-144)
[2018-04-05] MEDS: INSULIN ASPART [NOVOLOG] 3 ML PEN SC ×7 (08:11→20:46)
[2018-04-05] MEDS: LORATADINE 10 MG TAB PO (09:23)
[2018-04-05] MEDS: DOCUSATE SODIUM 100 MG CAP PO (09:23)
[2018-04-05] MEDS: CLOPIDOGREL 75 MG TAB PO (09:23)
[2018-04-05] MEDS: ASPIRIN 81 MG TAB PO (09:24)
[2018-04-05] MEDS: ISOSORBIDE DINITRATE 10 MG TAB PO ×3 (09:24→20:31)
[2018-04-05] MEDS: NA POLYST SULFON 15 GM/60 ML BTL PO (09:24)
[2018-04-05] MEDS: MEMANTINE 10 MG TAB PO ×2 (09:24→20:30)
[2018-04-05] MEDS: ESCITALOPRAM 10 MG TAB PO (09:24)
[2018-04-05] MEDS: TRIAMCINOLONE ACET 0.1% 15 GM CR TOP ×2 (09:25→21:00)
[2018-04-05] MEDS: NA PHOSPHATE/BIPHOS 133 ML ENEMA PR (11:33)
[2018-04-05] MEDS: MAGNESIUM HYDROXIDE 30ML CUP PO (11:33)
[2018-04-05] MEDS: DIPHENHYDRAMINE 25 MG CAP PO ×2 (11:50→20:30)
[2018-04-05] MEDS: ENOXAPARIN 30 MG/0.3 ML SYG SC (17:30)
[2018-04-05] MEDS: hydrOXYzine HCL 25 MG TAB PO (20:30)
[2018-04-05] MEDS: MONTELUKAST 10 MG TAB PO (20:30)
[2018-04-05] MEDS: ATORVASTATIN 40 MG TAB PO (20:30)
[2018-04-05] MEDS: IMIPRAMINE 25 MG TAB PO (20:30)
[2018-04-05] MEDS: INSULIN GLARGINE [LANTus] (100 UNITS/ML) SYG SC (20:46)
[2018-04-06] MEDS: ALBUTEROL 0.083% (NEB) 2.5 MG/3 ML AMP NEB ×6 (01:43→20:53)
[2018-04-06] MEDS: ACCU-CHEK XX (02:00)
[2018-04-06] MEDS: LEVOFLOXACIN 250 MG TAB PO (05:50)
[2018-04-06] MEDS: hydrOXYzine HCL 25 MG TAB PO ×3 (05:52→21:06)
[2018-04-06 06:14] LABS: ADD MAN DIFF? NO
[2018-04-06 06:23] LABS: ABNORMAL IP MESSAGE 1; BASOPHIL # 0.1 10^3/ul (0.0-0.1); BASOPHILS % 0.3 % (0.0-2.0); EOSINOPHILS # 0.6 10^3/ul (0.0-0.5); EOSINOPHILS % 2.9 % (0.0-7.0); HEMATOCRIT 33.7 % (37.0-47.0); HEMOGLOBIN 10.4 g/dl (12.0-16.0); LYMPHOCYTES # 1.1 10^3/ul (0.8-2.9); LYMPHOCYTES % 5.8 % (15.0-51.0); MEAN CORPUSCULAR HEMOGLOBIN 27.8 pg (29.0-33.0); MEAN CORPUSCULAR HGB CONC 30.9 g/dl (32.0-37.0); MEAN CORPUSCULAR VOLUME 90.1 fl (82.0-101.0); MEAN PLATELET VOLUME 11.5 fl (7.4-10.4); MONOCYTE # 1.6 10^3/ul (0.3-0.9); NEUTROPHIL # 15.9 10^3/ul (1.6-7.5); NEUTROPHILS % 81.9 % (39.0-77.0); PLATELET COUNT 160 10^3/UL (140-415); RED BLOOD COUNT 3.74 10^6/ul (4.20-5.40); RED CELL DISTRIBUTION WIDTH 15.3 % (11.5-14.5)
[2018-04-06 06:23] LABS: WHITE BLOOD COUNT 19.5 10^3/ul (4.8-10.8)
[2018-04-06 06:31] LABS: POSITIVE DIFF @See below
[2018-04-06 06:59] LABS: ANION GAP 13 (8-16); BLOOD UREA NITROGEN 53 mg/dl (7-20); CALCIUM 8.6 mg/dl (8.4-10.2); CARBON DIOXIDE 28 mmol/L (21-31); CHLORIDE 99 mmol/L (97-110); CREATININE 1.43 mg/dl (0.44-1.00); GLUCOSE 199 mg/dl (70-220); POTASSIUM 4.9 mmol/L (3.5-5.1); SODIUM 135 mmol/L (135-144)
[2018-04-06] MEDS: DOCUSATE SODIUM 100 MG CAP PO (08:05)
[2018-04-06] MEDS: ASPIRIN 81 MG TAB PO (08:05)
[2018-04-06] MEDS: CLOPIDOGREL 75 MG TAB PO (08:05)
[2018-04-06] MEDS: ESCITALOPRAM 10 MG TAB PO (08:05)
[2018-04-06] MEDS: MEMANTINE 10 MG TAB PO ×2 (08:05→21:06)
[2018-04-06] MEDS: ISOSORBIDE DINITRATE 10 MG TAB PO ×3 (08:05→21:06)
[2018-04-06] MEDS: LORATADINE 10 MG TAB PO ×2 (08:05→14:30)
[2018-04-06] MEDS: TRIAMCINOLONE ACET 0.1% 15 GM CR TOP ×2 (08:06→21:00)
[2018-04-06] MEDS: INSULIN ASPART [NOVOLOG] 3 ML PEN SC ×7 (08:10→21:12)
[2018-04-06] MEDS: FUROSEMIDE 40 MG INJ IV ×2 (13:36→13:41)
[2018-04-06 14:07] LABS: AADO2 Arterial 18.1 mmHg (7.0-24.0); Allen Test ACCEPTAB; Arterial Base Excess 1.5 mmol/L (-3.0-3); Arterial Blood Gas Oxygen Sat 98.4 mmHG (95.0-100.0); Arterial COHb 0.3 % (0.0-3.0); Arterial Fraction of Oxyhgb 97.7 % (93.0-99.0); Arterial HCO3 25.6 mmol/L (22.0-26.0); Arterial MetHb 0.4 % (0.0-1.5); Arterial Total Hemglobin 10.5 g/dl (12.0-18.0); Arterial pCO2 38.6 mmhg (35-45); MODE NASAL CANNULA; Site Left Radial
[2018-04-06] MEDS: ENOXAPARIN 30 MG/0.3 ML SYG SC (16:54)
[2018-04-06] MEDS: MONTELUKAST 10 MG TAB PO (21:06)
[2018-04-06] MEDS: IMIPRAMINE 25 MG TAB PO (21:06)
[2018-04-06] MEDS: ATORVASTATIN 40 MG TAB PO (21:06)
[2018-04-06] MEDS: INSULIN GLARGINE [LANTus] (100 UNITS/ML) SYG SC (21:13)
[2018-04-06] MEDS: DIPHENHYDRAMINE 25 MG CAP PO ×2 (23:34)
[2018-04-07] MEDS: ALBUTEROL 0.083% (NEB) 2.5 MG/3 ML AMP NEB ×6 (00:47→21:13)
[2018-04-07] MEDS: ACCU-CHEK XX (02:33)
[2018-04-07] MEDS: FUROSEMIDE 40 MG INJ IV ×2 (05:30→17:12)
[2018-04-07] MEDS: LEVOFLOXACIN 250 MG TAB PO (05:30)
[2018-04-07] MEDS: ASPIRIN 81 MG TAB PO (07:54)
[2018-04-07] MEDS: INSULIN ASPART [NOVOLOG] 3 ML PEN SC ×7 (07:58→21:21)
[2018-04-07] MEDS: hydrOXYzine HCL 25 MG TAB PO ×2 (07:59→17:22)
[2018-04-07] MEDS: TRIAMCINOLONE ACET 0.1% 15 GM CR TOP ×2 (07:59→21:18)
[2018-04-07] MEDS: LORATADINE 10 MG TAB PO (07:59)
[2018-04-07] MEDS: DIPHENHYDRAMINE 25 MG CAP PO ×2 (07:59→17:22)
[2018-04-07] MEDS: DOCUSATE SODIUM 100 MG CAP PO (07:59)
[2018-04-07] MEDS: ISOSORBIDE DINITRATE 10 MG TAB PO ×3 (08:00→21:17)
[2018-04-07] MEDS: CLOPIDOGREL 75 MG TAB PO (08:00)
[2018-04-07] MEDS: MEMANTINE 10 MG TAB PO ×2 (08:00→21:17)
[2018-04-07] MEDS: ESCITALOPRAM 10 MG TAB PO (08:00)
[2018-04-07] MEDS: LINAGLIPTIN 5 MG TABLET PO (10:05)
[2018-04-07] MEDS: ENOXAPARIN 30 MG/0.3 ML SYG SC (17:13)
[2018-04-07] MEDS: MONTELUKAST 10 MG TAB PO (21:17)
[2018-04-07] MEDS: ATORVASTATIN 40 MG TAB PO (21:17)
[2018-04-07] MEDS: IMIPRAMINE 25 MG TAB PO (21:18)
[2018-04-07] MEDS: INSULIN GLARGINE [LANTus] (100 UNITS/ML) SYG SC (21:23)
[2018-04-07] MEDS: traMADol 50 MG TAB PO (21:31)
[2018-04-08] MEDS: ALBUTEROL 0.083% (NEB) 2.5 MG/3 ML AMP NEB ×6 (01:42→20:10)
[2018-04-08] MEDS: ACCU-CHEK XX (02:39)
[2018-04-08] MEDS: FUROSEMIDE 40 MG INJ IV ×2 (05:46→17:09)
[2018-04-08 06:05] LABS: ADD MAN DIFF? NO
[2018-04-08 06:06] LABS: BASOPHILS % 0.3 % (0.0-2.0); EOSINOPHILS # 1.9 10^3/ul (0.0-0.5); EOSINOPHILS % 15.9 % (0.0-7.0); HEMATOCRIT 31.3 % (37.0-47.0); HEMOGLOBIN 9.8 g/dl (12.0-16.0); IMMATURE GRANS #M 0.07 10^3/ul; IMMATURE GRANS % (M) 0.6 %; LYMPHOCYTES % 8.2 % (15.0-51.0); MEAN CORPUSCULAR HEMOGLOBIN 28.6 pg (29.0-33.0); MEAN CORPUSCULAR HGB CONC 31.3 g/dl (32.0-37.0); MEAN CORPUSCULAR VOLUME 91.3 fl (82.0-101.0); MEAN PLATELET VOLUME 10.2 fl (7.4-10.4); MONOCYTE # 1.3 10^3/ul (0.3-0.9); MONOCYTES % 10.6 % (0.0-11.0); NEUTROPHIL # 7.6 10^3/ul (1.6-7.5); NEUTROPHILS % 64.4 % (39.0-77.0); PLATELET COUNT 155 10^3/UL (140-415); RED BLOOD COUNT 3.43 10^6/ul (4.20-5.40); RED CELL DISTRIBUTION WIDTH 15.7 % (11.5-14.5)
[2018-04-08 06:06] LABS: WHITE BLOOD COUNT 11.9 10^3/ul (4.8-10.8)
[2018-04-08 06:31] LABS: INR 0.98; PROTIME 13.1 Sec (11.9-14.9)
[2018-04-08 06:32] LABS: PARTIAL THROMBOPLASTIN TIME 29.2 Sec (25.0-35.0)
[2018-04-08 06:37] LABS: ALANINE AMINOTRANSFERASE 24 IU/L (13-69); ALBUMIN 3.2 g/dl (3.3-4.9); ALBUMIN/GLOBULIN RATIO 1.18; ALKALINE PHOSPHATASE 62 IU/L (42-121); ANION GAP 9 (8-16); ASPARTATE AMINO TRANSFERASE 16 IU/L (15-46); BILIRUBIN,INDIRECT 0.5 mg/dl (0-1.1); BILIRUBIN,TOTAL 0.5 mg/dl (0.2-1.3); BLOOD UREA NITROGEN 43 mg/dl (7-20); CALCIUM 8.3 mg/dl (8.4-10.2); CARBON DIOXIDE 36 mmol/L (21-31); CHLORIDE 97 mmol/L (97-110); CREATININE 1.47 mg/dl (0.44-1.00); GLUCOSE 113 mg/dl (70-220); POTASSIUM 4.6 mmol/L (3.5-5.1); SODIUM 137 mmol/L (135-144); TOTAL PROTEIN 5.9 g/dl (6.1-8.1)
[2018-04-08 06:39] LABS: MAGNESIUM 2.7 mg/dl (1.7-2.5)
[2018-04-08] MEDS: INSULIN ASPART [NOVOLOG] 3 ML PEN SC ×7 (08:22→20:48)
[2018-04-08] MEDS: ASPIRIN 81 MG TAB PO (08:43)
[2018-04-08] MEDS: ESCITALOPRAM 10 MG TAB PO (08:43)
[2018-04-08] MEDS: MEMANTINE 10 MG TAB PO ×2 (08:44→20:47)
[2018-04-08] MEDS: ISOSORBIDE DINITRATE 10 MG TAB PO ×3 (08:44→20:47)
[2018-04-08] MEDS: LORATADINE 10 MG TAB PO (08:44)
[2018-04-08] MEDS: DOCUSATE SODIUM 100 MG CAP PO (08:44)
[2018-04-08] MEDS: LINAGLIPTIN 5 MG TABLET PO (08:44)
[2018-04-08] MEDS: CLOPIDOGREL 75 MG TAB PO (08:44)
[2018-04-08] MEDS: TRIAMCINOLONE ACET 0.1% 15 GM CR TOP ×2 (08:45→20:52)
[2018-04-08] MEDS: traMADol 50 MG TAB PO (11:53)
[2018-04-08] MEDS: ENOXAPARIN 30 MG/0.3 ML SYG SC (17:16)
[2018-04-08] MEDS: INSULIN GLARGINE [LANTus] (100 UNITS/ML) SYG SC (20:19)
[2018-04-08] MEDS: IMIPRAMINE 25 MG TAB PO (20:45)
[2018-04-08] MEDS: MONTELUKAST 10 MG TAB PO (20:47)
[2018-04-08] MEDS: ATORVASTATIN 40 MG TAB PO (20:47)
[2018-04-09] MEDS: ALBUTEROL 0.083% (NEB) 2.5 MG/3 ML AMP NEB ×6 (00:15→21:43)
[2018-04-09] MEDS: ACCU-CHEK XX (02:00)
[2018-04-09] MEDS: FUROSEMIDE 40 MG INJ IV ×2 (05:50→17:23)
[2018-04-09 06:12] LABS: ADD MAN DIFF? NO
[2018-04-09 06:19] LABS: WHITE BLOOD COUNT 9.3 10^3/ul (4.8-10.8)
[2018-04-09 06:19] LABS: BASOPHILS % 0.3 % (0.0-2.0); EOSINOPHILS # 1.4 10^3/ul (0.0-0.5); EOSINOPHILS % 14.5 % (0.0-7.0); HEMATOCRIT 31.1 % (37.0-47.0); HEMOGLOBIN 9.6 g/dl (12.0-16.0); IMMATURE GRANS #M 0.04 10^3/ul; IMMATURE GRANS % (M) 0.4 %; LYMPHOCYTES # 0.9 10^3/ul (0.8-2.9); LYMPHOCYTES % 9.9 % (15.0-51.0); MEAN CORPUSCULAR HEMOGLOBIN 27.4 pg (29.0-33.0); MEAN CORPUSCULAR HGB CONC 30.9 g/dl (32.0-37.0); MEAN CORPUSCULAR VOLUME 88.9 fl (82.0-101.0); MEAN PLATELET VOLUME 10.7 fl (7.4-10.4); MONOCYTE # 0.9 10^3/ul (0.3-0.9); MONOCYTES % 9.8 % (0.0-11.0); NEUTROPHIL # 6.1 10^3/ul (1.6-7.5); NEUTROPHILS % 65.1 % (39.0-77.0); PLATELET COUNT 138 10^3/UL (140-415); RED CELL DISTRIBUTION WIDTH 15.8 % (11.5-14.5)
[2018-04-09 06:35] LABS: ALANINE AMINOTRANSFERASE 23 IU/L (13-69); ALBUMIN 3.3 g/dl (3.3-4.9); ALBUMIN/GLOBULIN RATIO 1.26; ALKALINE PHOSPHATASE 63 IU/L (42-121); ANION GAP 10 (8-16); ASPARTATE AMINO TRANSFERASE 17 IU/L (15-46); BILIRUBIN,INDIRECT 0.3 mg/dl (0-1.1); BILIRUBIN,TOTAL 0.3 mg/dl (0.2-1.3); BLOOD UREA NITROGEN 42 mg/dl (7-20); CALCIUM 8.3 mg/dl (8.4-10.2); CARBON DIOXIDE 34 mmol/L (21-31); CHLORIDE 96 mmol/L (97-110); CREATININE 1.31 mg/dl (0.44-1.00); GLUCOSE 130 mg/dl (70-220); POTASSIUM 4.3 mmol/L (3.5-5.1); SODIUM 136 mmol/L (135-144); TOTAL PROTEIN 5.9 g/dl (6.1-8.1)
[2018-04-09] MEDS: INSULIN ASPART [NOVOLOG] 3 ML PEN SC ×7 (07:40→21:00)
[2018-04-09] MEDS: MEMANTINE 10 MG TAB PO ×2 (08:39→20:29)
[2018-04-09] MEDS: ESCITALOPRAM 10 MG TAB PO (08:39)
[2018-04-09] MEDS: CLOPIDOGREL 75 MG TAB PO (08:39)
[2018-04-09] MEDS: ASPIRIN 81 MG TAB PO (08:39)
[2018-04-09] MEDS: ISOSORBIDE DINITRATE 10 MG TAB PO ×3 (08:39→20:29)
[2018-04-09] MEDS: LORATADINE 10 MG TAB PO (08:39)
[2018-04-09] MEDS: LINAGLIPTIN 5 MG TABLET PO (08:39)
[2018-04-09] MEDS: DOCUSATE SODIUM 100 MG CAP PO (08:39)
[2018-04-09] MEDS: TRIAMCINOLONE ACET 0.1% 15 GM CR TOP ×2 (08:40→20:30)
[2018-04-09] MEDS: traMADol 50 MG TAB PO (16:02)
[2018-04-09] MEDS: ENOXAPARIN 30 MG/0.3 ML SYG SC (17:36)
[2018-04-09] MEDS: IMIPRAMINE 25 MG TAB PO (20:28)
[2018-04-09] MEDS: MONTELUKAST 10 MG TAB PO (20:29)
[2018-04-09] MEDS: ATORVASTATIN 40 MG TAB PO (20:29)
[2018-04-09] MEDS: INSULIN GLARGINE [LANTus] (100 UNITS/ML) SYG SC (21:01)
[2018-04-10] MEDS: ACCU-CHEK XX (02:00)
[2018-04-10] MEDS: ALBUTEROL 0.083% (NEB) 2.5 MG/3 ML AMP NEB ×6 (02:19→21:54)
[2018-04-10] MEDS: FUROSEMIDE 40 MG INJ IV ×2 (05:36→17:27)
[2018-04-10 05:51] LABS: ADD MAN DIFF? NO
[2018-04-10 06:00] LABS: BASOPHILS % 0.2 % (0.0-2.0); EOSINOPHILS # 1.4 10^3/ul (0.0-0.5); EOSINOPHILS % 14.5 % (0.0-7.0); HEMOGLOBIN 10.1 g/dl (12.0-16.0); IMMATURE GRANS #M 0.07 10^3/ul; IMMATURE GRANS % (M) 0.8 %; LYMPHOCYTES % 10.5 % (15.0-51.0); MEAN CORPUSCULAR HEMOGLOBIN 27.7 pg (29.0-33.0); MEAN CORPUSCULAR HGB CONC 30.6 g/dl (32.0-37.0); MEAN CORPUSCULAR VOLUME 90.7 fl (82.0-101.0); MEAN PLATELET VOLUME 10.6 fl (7.4-10.4); MONOCYTE # 0.7 10^3/ul (0.3-0.9); MONOCYTES % 7.4 % (0.0-11.0); NEUTROPHIL # 6.2 10^3/ul (1.6-7.5); NEUTROPHILS % 66.6 % (39.0-77.0); PLATELET COUNT 131 10^3/UL (140-415); RED BLOOD COUNT 3.64 10^6/ul (4.20-5.40); RED CELL DISTRIBUTION WIDTH 15.5 % (11.5-14.5)
[2018-04-10 06:00] LABS: WHITE BLOOD COUNT 9.3 10^3/ul (4.8-10.8)
[2018-04-10 06:27] LABS: ANION GAP 10 (8-16); BLOOD UREA NITROGEN 41 mg/dl (7-20); CALCIUM 8.5 mg/dl (8.4-10.2); CARBON DIOXIDE 35 mmol/L (21-31); CHLORIDE 94 mmol/L (97-110); CREATININE 1.24 mg/dl (0.44-1.00); GLUCOSE 171 mg/dl (70-220); POTASSIUM 4.3 mmol/L (3.5-5.1); SODIUM 135 mmol/L (135-144)
[2018-04-10] MEDS: INSULIN ASPART [NOVOLOG] 3 ML PEN SC ×7 (08:30→21:00)
[2018-04-10] MEDS: LINAGLIPTIN 5 MG TABLET PO (09:02)
[2018-04-10] MEDS: ESCITALOPRAM 10 MG TAB PO (09:02)
[2018-04-10] MEDS: DOCUSATE SODIUM 100 MG CAP PO (09:02)
[2018-04-10] MEDS: MEMANTINE 10 MG TAB PO ×2 (09:02→20:47)
[2018-04-10] MEDS: ASPIRIN 81 MG TAB PO (09:02)
[2018-04-10] MEDS: CLOPIDOGREL 75 MG TAB PO (09:02)
[2018-04-10] MEDS: LORATADINE 10 MG TAB PO (09:03)
[2018-04-10] MEDS: ISOSORBIDE DINITRATE 10 MG TAB PO ×3 (09:03→20:48)
[2018-04-10] MEDS: TRIAMCINOLONE ACET 0.1% 15 GM CR TOP ×2 (09:05→20:50)
[2018-04-10] MEDS: ENOXAPARIN 30 MG/0.3 ML SYG SC (17:48)
[2018-04-10] MEDS: IMIPRAMINE 25 MG TAB PO (20:46)
[2018-04-10] MEDS: MONTELUKAST 10 MG TAB PO (20:47)
[2018-04-10] MEDS: ATORVASTATIN 40 MG TAB PO (20:47)
[2018-04-10] MEDS: traMADol 50 MG TAB PO (20:47)
[2018-04-10] MEDS: INSULIN GLARGINE [LANTus] (100 UNITS/ML) SYG SC (21:07)
[2018-04-11] MEDS: ACCU-CHEK XX (00:13)
[2018-04-11] MEDS: ALBUTEROL 0.083% (NEB) 2.5 MG/3 ML AMP NEB ×6 (00:56→20:40)
[2018-04-11 05:59] LABS: ADD MAN DIFF? NO
[2018-04-11 06:11] LABS: WHITE BLOOD COUNT 8.9 10^3/ul (4.8-10.8)
[2018-04-11 06:11] LABS: BASOPHILS % 0.2 % (0.0-2.0); EOSINOPHILS # 1.3 10^3/ul (0.0-0.5); EOSINOPHILS % 14.5 % (0.0-7.0); HEMATOCRIT 32.4 % (37.0-47.0); HEMOGLOBIN 10.2 g/dl (12.0-16.0); IMMATURE GRANS #M 0.07 10^3/ul; IMMATURE GRANS % (M) 0.8 %; LYMPHOCYTES # 1.1 10^3/ul (0.8-2.9); MEAN CORPUSCULAR HGB CONC 31.5 g/dl (32.0-37.0); MEAN PLATELET VOLUME 10.8 fl (7.4-10.4); MONOCYTE # 0.8 10^3/ul (0.3-0.9); MONOCYTES % 9.2 % (0.0-11.0); NEUTROPHIL # 5.6 10^3/ul (1.6-7.5); NEUTROPHILS % 63.3 % (39.0-77.0); PLATELET COUNT 123 10^3/UL (140-415); RED BLOOD COUNT 3.64 10^6/ul (4.20-5.40); RED CELL DISTRIBUTION WIDTH 15.1 % (11.5-14.5)
[2018-04-11 07:02] LABS: ANION GAP 11 (8-16); BLOOD UREA NITROGEN 41 mg/dl (7-20); CALCIUM 8.7 mg/dl (8.4-10.2); CARBON DIOXIDE 36 mmol/L (21-31); CHLORIDE 93 mmol/L (97-110); CREATININE 1.38 mg/dl (0.44-1.00); GLUCOSE 149 mg/dl (70-220); POTASSIUM 4.6 mmol/L (3.5-5.1); SODIUM 135 mmol/L (135-144)
[2018-04-11] MEDS: INSULIN ASPART [NOVOLOG] 3 ML PEN SC ×6 (08:02→17:40)
[2018-04-11] MEDS: TRIAMCINOLONE ACET 0.1% 15 GM CR TOP (08:51)
[2018-04-11] MEDS: LINAGLIPTIN 5 MG TABLET PO (08:52)
[2018-04-11] MEDS: DOCUSATE SODIUM 100 MG CAP PO (08:52)
[2018-04-11] MEDS: MEMANTINE 10 MG TAB PO (08:52)
[2018-04-11] MEDS: ASPIRIN 81 MG TAB PO (08:52)
[2018-04-11] MEDS: ESCITALOPRAM 10 MG TAB PO (08:52)
[2018-04-11] MEDS: FUROSEMIDE 40 MG INJ IV (08:52)
[2018-04-11] MEDS: CLOPIDOGREL 75 MG TAB PO (08:52)
[2018-04-11] MEDS: LORATADINE 10 MG TAB PO (08:53)
[2018-04-11] MEDS: ISOSORBIDE DINITRATE 10 MG TAB PO ×2 (08:53→12:22)
[2018-04-11] MEDS: MAGNESIUM HYDROXIDE 30ML CUP PO (15:51)
[2018-04-11] MEDS: traMADol 50 MG TAB PO (16:56)
[2018-04-11] MEDS: ENOXAPARIN 30 MG/0.3 ML SYG SC (18:31)
[2018-04-11] MEDS: BUPIVACAINE 0.5%/EPI 1:200,000 50 ML (MDV) INJ (21:00)
[2018-04-11] MEDS: BETAMET NA PHOS/AC(6 MG/ML) 5ML INJ IM (21:00)
[2018-04-12] MEDS: ALBUTEROL 0.083% (NEB) 2.5 MG/3 ML AMP NEB ×6 (01:23→21:24)
[2018-04-12] MEDS: INSULIN GLARGINE [LANTus] (100 UNITS/ML) SYG SC ×2 (01:41→21:38)
[2018-04-12] MEDS: INSULIN ASPART [NOVOLOG] 3 ML PEN SC ×8 (01:41→21:38)
[2018-04-12] MEDS: MEMANTINE 10 MG TAB PO ×3 (01:43→21:13)
[2018-04-12] MEDS: IMIPRAMINE 25 MG TAB PO ×2 (01:43→21:13)
[2018-04-12] MEDS: ATORVASTATIN 40 MG TAB PO ×2 (01:43→21:13)
[2018-04-12] MEDS: MONTELUKAST 10 MG TAB PO ×2 (01:43→21:13)
[2018-04-12] MEDS: ISOSORBIDE DINITRATE 10 MG TAB PO ×4 (01:44→21:13)
[2018-04-12] MEDS: ACCU-CHEK XX (01:47)
[2018-04-12] MEDS: TRIAMCINOLONE ACET 0.1% 15 GM CR TOP ×4 (01:47→21:14)
[2018-04-12] MEDS: traMADol 50 MG TAB PO (01:57)
[2018-04-12 06:14] LABS: ADD MAN DIFF? NO
[2018-04-12 06:20] LABS: ABNORMAL IP MESSAGE 1; BASOPHILS % 0.1 % (0.0-2.0); EOSINOPHILS % 0.1 % (0.0-7.0); HEMATOCRIT 32.6 % (37.0-47.0); HEMOGLOBIN 10.1 g/dl (12.0-16.0); IMMATURE GRANS #M 0.09 10^3/ul; LYMPHOCYTES # 0.5 10^3/ul (0.8-2.9); LYMPHOCYTES % 5.9 % (15.0-51.0); MEAN CORPUSCULAR HEMOGLOBIN 27.3 pg (29.0-33.0); MEAN CORPUSCULAR VOLUME 88.1 fl (82.0-101.0); MEAN PLATELET VOLUME 10.6 fl (7.4-10.4); MONOCYTE # 0.1 10^3/ul (0.3-0.9); MONOCYTES % 1.1 % (0.0-11.0); NEUTROPHIL # 8.1 10^3/ul (1.6-7.5); NEUTROPHILS % 91.8 % (39.0-77.0); PLATELET COUNT 123 10^3/UL (140-415); RED CELL DISTRIBUTION WIDTH 14.9 % (11.5-14.5)
[2018-04-12 06:20] LABS: WHITE BLOOD COUNT 8.8 10^3/ul (4.8-10.8)
[2018-04-12 06:29] LABS: POSITIVE DIFF @See below
[2018-04-12 06:59] LABS: ANION GAP 12 (8-16); BLOOD UREA NITROGEN 34 mg/dl (7-20); CALCIUM 8.7 mg/dl (8.4-10.2); CARBON DIOXIDE 33 mmol/L (21-31); CHLORIDE 96 mmol/L (97-110); CREATININE 1.28 mg/dl (0.44-1.00); GLUCOSE 226 mg/dl (70-220); POTASSIUM 4.6 mmol/L (3.5-5.1); SODIUM 136 mmol/L (135-144)
[2018-04-12] MEDS: FUROSEMIDE 40 MG INJ IV ×2 (08:56→13:22)
[2018-04-12] MEDS: ESCITALOPRAM 10 MG TAB PO (08:56)
[2018-04-12] MEDS: CLOPIDOGREL 75 MG TAB PO (08:56)
[2018-04-12] MEDS: LORATADINE 10 MG TAB PO (08:56)
[2018-04-12] MEDS: DOCUSATE SODIUM 100 MG CAP PO (08:56)
[2018-04-12] MEDS: LINAGLIPTIN 5 MG TABLET PO (08:57)
[2018-04-12] MEDS: ASPIRIN 81 MG TAB PO (08:57)
[2018-04-12] MEDS: BISACODYL 10 MG SUPP PR (15:10)
[2018-04-12] MEDS: ENOXAPARIN 30 MG/0.3 ML SYG SC (18:06)
[2018-04-12] MEDS: DIPHENHYDRAMINE 25 MG CAP PO (21:45)
[2018-04-13] MEDS: ALBUTEROL 0.083% (NEB) 2.5 MG/3 ML AMP NEB ×6 (00:20→21:01)
[2018-04-13] MEDS: ACCU-CHEK XX (02:00)
[2018-04-13 05:49] LABS: ADD MAN DIFF? NO
[2018-04-13 05:52] LABS: WHITE BLOOD COUNT 14.7 10^3/ul (4.8-10.8)
[2018-04-13 05:53] LABS: BASOPHILS % 0.1 % (0.0-2.0); EOSINOPHILS % 0.1 % (0.0-7.0); HEMATOCRIT 28.8 % (37.0-47.0); HEMOGLOBIN 9.1 g/dl (12.0-16.0); LYMPHOCYTES # 0.8 10^3/ul (0.8-2.9); LYMPHOCYTES % 5.7 % (15.0-51.0); MEAN CORPUSCULAR HEMOGLOBIN 27.7 pg (29.0-33.0); MEAN CORPUSCULAR HGB CONC 31.6 g/dl (32.0-37.0); MEAN CORPUSCULAR VOLUME 87.8 fl (82.0-101.0); MEAN PLATELET VOLUME 10.3 fl (7.4-10.4); MONOCYTE # 0.9 10^3/ul (0.3-0.9); MONOCYTES % 6.3 % (0.0-11.0); NEUTROPHIL # 12.8 10^3/ul (1.6-7.5); NEUTROPHILS % 86.6 % (39.0-77.0); PLATELET COUNT 151 10^3/UL (140-415); RED BLOOD COUNT 3.28 10^6/ul (4.20-5.40); RED CELL DISTRIBUTION WIDTH 15.2 % (11.5-14.5)
[2018-04-13] MEDS: INSULIN ASPART [NOVOLOG] 3 ML PEN SC ×7 (07:54→20:43)
[2018-04-13] MEDS: TRIAMCINOLONE ACET 0.1% 15 GM CR TOP ×2 (09:00→20:24)
[2018-04-13] MEDS: ASPIRIN 81 MG TAB PO (09:11)
[2018-04-13] MEDS: DOCUSATE SODIUM 100 MG CAP PO (09:12)
[2018-04-13] MEDS: LINAGLIPTIN 5 MG TABLET PO (09:12)
[2018-04-13] MEDS: CLOPIDOGREL 75 MG TAB PO (09:12)
[2018-04-13] MEDS: LORATADINE 10 MG TAB PO (09:12)
[2018-04-13] MEDS: ESCITALOPRAM 10 MG TAB PO (09:12)
[2018-04-13] MEDS: FUROSEMIDE 40 MG INJ IV (09:13)
[2018-04-13] MEDS: ISOSORBIDE DINITRATE 10 MG TAB PO ×3 (09:13→20:33)
[2018-04-13] MEDS: MEMANTINE 10 MG TAB PO ×2 (09:13→20:32)
[2018-04-13] MEDS: ENOXAPARIN 30 MG/0.3 ML SYG SC (17:48)
[2018-04-13 18:55] LABS: IRON 35 ug/dl (35-150)
[2018-04-13 19:05] LABS: % IRON SATURATION 11 % SAT (22-52); TOTAL IRON BINDING CAPACITY 329 ug/dl (241-421)
[2018-04-13 19:55] LABS: THYROID STIMULATING HORMONE 0.409 MIU/L (0.465-4.680)
[2018-04-13 19:55] LABS: HEPATITIS C VIRAL ANTIBODY NEGATIVE (NEGATIVE)
[2018-04-13] MEDS: INSULIN GLARGINE [LANTus] (100 UNITS/ML) SYG SC (20:26)
[2018-04-13] MEDS: ATORVASTATIN 40 MG TAB PO (20:32)
[2018-04-13] MEDS: IMIPRAMINE 25 MG TAB PO (20:32)
[2018-04-13] MEDS: MONTELUKAST 10 MG TAB PO (20:32)
[2018-04-13] MEDS: METOPROLOL 25 MG TAB PO (20:33)
[2018-04-13] MEDS: FLUTICASONE/VILANTEROL 200-25 INH DEVICE INH (21:17)
[2018-04-14] MEDS: ALBUTEROL 0.083% (NEB) 2.5 MG/3 ML AMP NEB ×6 (01:25→21:12)
[2018-04-14] MEDS: ACCU-CHEK XX (02:00)
[2018-04-14] MEDS: traMADol 50 MG TAB PO (02:09)
[2018-04-14 05:54] LABS: ADD MAN DIFF? NO
[2018-04-14 05:57] LABS: BASOPHILS % 0.1 % (0.0-2.0); EOSINOPHILS # 0.3 10^3/ul (0.0-0.5); HEMOGLOBIN 9.6 g/dl (12.0-16.0); LYMPHOCYTES # 1.4 10^3/ul (0.8-2.9); LYMPHOCYTES % 9.7 % (15.0-51.0); MEAN CORPUSCULAR HEMOGLOBIN 27.8 pg (29.0-33.0); MEAN CORPUSCULAR VOLUME 89.9 fl (82.0-101.0); MEAN PLATELET VOLUME 10.3 fl (7.4-10.4); MONOCYTE # 1.3 10^3/ul (0.3-0.9); MONOCYTES % 9.1 % (0.0-11.0); NEUTROPHIL # 11.3 10^3/ul (1.6-7.5); NEUTROPHILS % 78.3 % (39.0-77.0); PLATELET COUNT 175 10^3/UL (140-415); RED BLOOD COUNT 3.45 10^6/ul (4.20-5.40); RED CELL DISTRIBUTION WIDTH 15.5 % (11.5-14.5)
[2018-04-14 05:57] LABS: WHITE BLOOD COUNT 14.4 10^3/ul (4.8-10.8)
[2018-04-14 06:31] LABS: ANION GAP 10 (8-16); BLOOD UREA NITROGEN 39 mg/dl (7-20); CALCIUM 8.3 mg/dl (8.4-10.2); CARBON DIOXIDE 34 mmol/L (21-31); CHLORIDE 93 mmol/L (97-110); CREATININE 1.24 mg/dl (0.44-1.00); GLUCOSE 150 mg/dl (70-220); POTASSIUM 4.2 mmol/L (3.5-5.1); SODIUM 133 mmol/L (135-144)
[2018-04-14] MEDS: INSULIN ASPART [NOVOLOG] 3 ML PEN SC ×7 (07:43→21:05)
[2018-04-14] MEDS: LINAGLIPTIN 5 MG TABLET PO (09:24)
[2018-04-14] MEDS: MEMANTINE 10 MG TAB PO ×2 (09:24→20:56)
[2018-04-14] MEDS: ISOSORBIDE DINITRATE 10 MG TAB PO ×3 (09:24→20:57)
[2018-04-14] MEDS: CLOPIDOGREL 75 MG TAB PO (09:24)
[2018-04-14] MEDS: DOCUSATE SODIUM 100 MG CAP PO (09:24)
[2018-04-14] MEDS: ESCITALOPRAM 10 MG TAB PO (09:25)
[2018-04-14] MEDS: FUROSEMIDE 40 MG INJ IV (09:25)
[2018-04-14] MEDS: LORATADINE 10 MG TAB PO (09:25)
[2018-04-14] MEDS: ASPIRIN 81 MG TAB PO (09:25)
[2018-04-14] MEDS: METOPROLOL 25 MG TAB PO ×2 (09:25→20:58)
[2018-04-14] MEDS: FLUTICASONE/VILANTEROL 200-25 INH DEVICE INH (09:26)
[2018-04-14] MEDS: TRIAMCINOLONE ACET 0.1% 15 GM CR TOP ×2 (09:31→21:00)
[2018-04-14] MEDS: COSYNTROPIN 0.25 MG INJ IV (15:53)
[2018-04-14] MEDS: ENOXAPARIN 30 MG/0.3 ML SYG SC (17:27)
[2018-04-14] MEDS: IMIPRAMINE 25 MG TAB PO (20:57)
[2018-04-14] MEDS: MONTELUKAST 10 MG TAB PO (20:57)
[2018-04-14] MEDS: ATORVASTATIN 40 MG TAB PO (20:58)
[2018-04-14] MEDS: INSULIN GLARGINE [LANTus] (100 UNITS/ML) SYG SC (21:06)
[2018-04-14] MEDS: LORAZEPAM 0.5 MG TAB PO (23:04)
[2018-04-15] MEDS: ALBUTEROL 0.083% (NEB) 2.5 MG/3 ML AMP NEB ×6 (01:51→21:46)
[2018-04-15] MEDS: ACCU-CHEK XX (02:00)
[2018-04-15 06:37] LABS: ADD MAN DIFF? NO
[2018-04-15 06:38] LABS: WHITE BLOOD COUNT 10.8 10^3/ul (4.8-10.8)
[2018-04-15 06:38] LABS: BASOPHILS % 0.1 % (0.0-2.0); EOSINOPHILS # 0.3 10^3/ul (0.0-0.5); EOSINOPHILS % 2.9 % (0.0-7.0); HEMATOCRIT 31.5 % (37.0-47.0); LYMPHOCYTES # 1.1 10^3/ul (0.8-2.9); LYMPHOCYTES % 10.3 % (15.0-51.0); MEAN CORPUSCULAR HEMOGLOBIN 28.2 pg (29.0-33.0); MEAN CORPUSCULAR HGB CONC 31.7 g/dl (32.0-37.0); MEAN PLATELET VOLUME 10.6 fl (7.4-10.4); MONOCYTE # 1.2 10^3/ul (0.3-0.9); MONOCYTES % 11.5 % (0.0-11.0); NEUTROPHIL # 8.1 10^3/ul (1.6-7.5); NEUTROPHILS % 74.5 % (39.0-77.0); PLATELET COUNT 168 10^3/UL (140-415); RED BLOOD COUNT 3.54 10^6/ul (4.20-5.40); RED CELL DISTRIBUTION WIDTH 15.6 % (11.5-14.5)
[2018-04-15] MEDS: METOPROLOL 25 MG TAB PO ×2 (08:09→20:44)
[2018-04-15] MEDS: ASPIRIN 81 MG TAB PO (08:09)
[2018-04-15] MEDS: ESCITALOPRAM 10 MG TAB PO (08:10)
[2018-04-15] MEDS: LORATADINE 10 MG TAB PO (08:10)
[2018-04-15] MEDS: DOCUSATE SODIUM 100 MG CAP PO (08:10)
[2018-04-15] MEDS: LINAGLIPTIN 5 MG TABLET PO (08:10)
[2018-04-15] MEDS: MEMANTINE 10 MG TAB PO ×2 (08:10→20:44)
[2018-04-15] MEDS: CLOPIDOGREL 75 MG TAB PO (08:10)
[2018-04-15] MEDS: ISOSORBIDE DINITRATE 10 MG TAB PO ×3 (08:10→20:44)
[2018-04-15] MEDS: FUROSEMIDE 40 MG INJ IV (08:11)
[2018-04-15] MEDS: FLUTICASONE/VILANTEROL 200-25 INH DEVICE INH (08:11)
[2018-04-15] MEDS: INSULIN ASPART [NOVOLOG] 3 ML PEN SC ×7 (08:29→20:45)
[2018-04-15] MEDS: TRIAMCINOLONE ACET 0.1% 15 GM CR TOP ×2 (08:31→21:30)
[2018-04-15] MEDS: metFORMIN 500 MG TAB PO ×2 (17:09→17:14)
[2018-04-15] MEDS: ENOXAPARIN 30 MG/0.3 ML SYG SC (17:13)
[2018-04-15] MEDS: ATORVASTATIN 40 MG TAB PO (20:44)
[2018-04-15] MEDS: MECLIZINE 25 MG TAB PO (20:44)
[2018-04-15] MEDS: MONTELUKAST 10 MG TAB PO (20:44)
[2018-04-15] MEDS: IMIPRAMINE 25 MG TAB PO (20:44)
[2018-04-15] MEDS: INSULIN GLARGINE [LANTus] (100 UNITS/ML) SYG SC (21:29)
[2018-04-15] MEDS: traMADol 50 MG TAB PO (21:42)
[2018-04-16] MEDS: morphine LIQ (10 MG/5 ML) CUP PO ×2 (00:06→04:43)
[2018-04-16] MEDS: ALBUTEROL 0.083% (NEB) 2.5 MG/3 ML AMP NEB ×6 (01:01→20:50)
[2018-04-16] MEDS: ACCU-CHEK XX (02:00)
[2018-04-16 07:13] LABS: ADD MAN DIFF? NO
[2018-04-16 07:19] LABS: BASOPHILS % 0.2 % (0.0-2.0); EOSINOPHILS # 0.5 10^3/ul (0.0-0.5); EOSINOPHILS % 4.1 % (0.0-7.0); HEMATOCRIT 34.1 % (37.0-47.0); HEMOGLOBIN 10.2 g/dl (12.0-16.0); LYMPHOCYTES # 1.6 10^3/ul (0.8-2.9); LYMPHOCYTES % 13.6 % (15.0-51.0); MEAN CORPUSCULAR HEMOGLOBIN 27.3 pg (29.0-33.0); MEAN CORPUSCULAR HGB CONC 29.9 g/dl (32.0-37.0); MEAN CORPUSCULAR VOLUME 91.4 fl (82.0-101.0); MEAN PLATELET VOLUME 10.8 fl (7.4-10.4); MONOCYTE # 1.3 10^3/ul (0.3-0.9); MONOCYTES % 11.4 % (0.0-11.0); NEUTROPHIL # 8.2 10^3/ul (1.6-7.5); NEUTROPHILS % 69.9 % (39.0-77.0); PLATELET COUNT 169 10^3/UL (140-415); RED BLOOD COUNT 3.73 10^6/ul (4.20-5.40); RED CELL DISTRIBUTION WIDTH 15.9 % (11.5-14.5)
[2018-04-16 07:19] LABS: WHITE BLOOD COUNT 11.7 10^3/ul (4.8-10.8)
[2018-04-16] MEDS: INSULIN ASPART [NOVOLOG] 3 ML PEN SC ×7 (07:58→21:00)
[2018-04-16] MEDS: ASPIRIN 81 MG TAB PO (08:08)
[2018-04-16] MEDS: CLOPIDOGREL 75 MG TAB PO (08:08)
[2018-04-16] MEDS: FUROSEMIDE 40 MG INJ IV ×2 (08:08→15:51)
[2018-04-16] MEDS: METOPROLOL 25 MG TAB PO ×2 (08:08→21:00)
[2018-04-16] MEDS: ESCITALOPRAM 10 MG TAB PO (08:08)
[2018-04-16] MEDS: ISOSORBIDE DINITRATE 10 MG TAB PO ×3 (08:09→21:00)
[2018-04-16] MEDS: MEMANTINE 10 MG TAB PO ×2 (08:09→21:00)
[2018-04-16] MEDS: LORATADINE 10 MG TAB PO (08:09)
[2018-04-16] MEDS: LINAGLIPTIN 5 MG TABLET PO (08:09)
[2018-04-16] MEDS: DOCUSATE SODIUM 100 MG CAP PO (08:10)
[2018-04-16] MEDS: TRIAMCINOLONE ACET 0.1% 15 GM CR TOP ×2 (08:10→21:49)
[2018-04-16] MEDS: FLUTICASONE/VILANTEROL 200-25 INH DEVICE INH (08:10)
[2018-04-16] MEDS: LORAZEPAM 0.5 MG TAB PO (11:43)
[2018-04-16] MEDS: ONDANSETRON 4 MG INJ IV ×2 (15:51→20:59)
[2018-04-16] MEDS: metFORMIN 500 MG TAB PO (17:06)
[2018-04-16] MEDS: ENOXAPARIN 30 MG/0.3 ML SYG SC (17:17)
[2018-04-16 17:58] LABS: ANION GAP 10 (8-16); BLOOD UREA NITROGEN 38 mg/dl (7-20); CALCIUM 8.5 mg/dl (8.4-10.2); CARBON DIOXIDE 32 mmol/L (21-31); CHLORIDE 100 mmol/L (97-110); CREATININE 1.37 mg/dl (0.44-1.00); GLUCOSE 157 mg/dl (70-220); POTASSIUM 4.4 mmol/L (3.5-5.1); SODIUM 138 mmol/L (135-144)
[2018-04-16] MEDS: MONTELUKAST 10 MG TAB PO (21:00)
[2018-04-16] MEDS: IMIPRAMINE 25 MG TAB PO (21:00)
[2018-04-16] MEDS: ATORVASTATIN 40 MG TAB PO (21:00)
[2018-04-16] MEDS: INSULIN GLARGINE [LANTus] (100 UNITS/ML) SYG SC (21:46)
[2018-04-16] MEDS ORDERED: morphine 2 MG INJ IV (22:00)
[2018-04-16] MEDS: IOHEXOL 14.3 MG(I)/ML (ADULT) BTL PO (22:00)
[2018-04-16] MEDS: PANTOPRAZOLE 40 MG INJ IV (22:00)
[2018-04-17] MEDS: ALBUTEROL 0.083% (NEB) 2.5 MG/3 ML AMP NEB ×6 (01:07→21:10)
[2018-04-17] MEDS: ACCU-CHEK XX ×2 (02:00→20:41)
[2018-04-17 05:43] LABS: ADD MAN DIFF? NO
[2018-04-17 05:53] LABS: BASOPHILS % 0.2 % (0.0-2.0); EOSINOPHILS # 0.3 10^3/ul (0.0-0.5); EOSINOPHILS % 2.9 % (0.0-7.0); HEMATOCRIT 31.9 % (37.0-47.0); HEMOGLOBIN 9.5 g/dl (12.0-16.0); LYMPHOCYTES # 1.4 10^3/ul (0.8-2.9); LYMPHOCYTES % 13.4 % (15.0-51.0); MEAN CORPUSCULAR HEMOGLOBIN 27.2 pg (29.0-33.0); MEAN CORPUSCULAR HGB CONC 29.8 g/dl (32.0-37.0); MEAN CORPUSCULAR VOLUME 91.4 fl (82.0-101.0); MEAN PLATELET VOLUME 10.5 fl (7.4-10.4); MONOCYTES % 10.4 % (0.0-11.0); NEUTROPHIL # 7.3 10^3/ul (1.6-7.5); NEUTROPHILS % 72.2 % (39.0-77.0); PLATELET COUNT 142 10^3/UL (140-415); RED BLOOD COUNT 3.49 10^6/ul (4.20-5.40); RED CELL DISTRIBUTION WIDTH 15.9 % (11.5-14.5)
[2018-04-17] MEDS: IOHEXOL 14.3 MG(I)/ML (ADULT) BTL PO ×2 (06:10→10:00)
[2018-04-17] MEDS: PANTOPRAZOLE 40 MG INJ IV (06:12)
[2018-04-17 06:24] LABS: ANION GAP 9 (8-16); BLOOD UREA NITROGEN 37 mg/dl (7-20); CALCIUM 8.3 mg/dl (8.4-10.2); CARBON DIOXIDE 34 mmol/L (21-31); CHLORIDE 102 mmol/L (97-110); CREATININE 1.41 mg/dl (0.44-1.00); GLUCOSE 119 mg/dl (70-220); POTASSIUM 4.5 mmol/L (3.5-5.1); SODIUM 140 mmol/L (135-144)
[2018-04-17 07:17] LABS: ADD MAN DIFF? NO
[2018-04-17 07:23] LABS: WHITE BLOOD COUNT 9.8 10^3/ul (4.8-10.8)
[2018-04-17 07:23] LABS: BASOPHILS % 0.1 % (0.0-2.0); EOSINOPHILS # 0.3 10^3/ul (0.0-0.5); EOSINOPHILS % 3.5 % (0.0-7.0); HEMATOCRIT 32.5 % (37.0-47.0); HEMOGLOBIN 9.7 g/dl (12.0-16.0); LYMPHOCYTES # 1.2 10^3/ul (0.8-2.9); LYMPHOCYTES % 12.3 % (15.0-51.0); MEAN CORPUSCULAR HEMOGLOBIN 27.3 pg (29.0-33.0); MEAN CORPUSCULAR HGB CONC 29.8 g/dl (32.0-37.0); MEAN CORPUSCULAR VOLUME 91.5 fl (82.0-101.0); MEAN PLATELET VOLUME 10.1 fl (7.4-10.4); MONOCYTES % 10.3 % (0.0-11.0); NEUTROPHIL # 7.2 10^3/ul (1.6-7.5); NEUTROPHILS % 72.9 % (39.0-77.0); PLATELET COUNT 137 10^3/UL (140-415); RED BLOOD COUNT 3.55 10^6/ul (4.20-5.40); RED CELL DISTRIBUTION WIDTH 15.9 % (11.5-14.5)
[2018-04-17 07:40] LABS: ALANINE AMINOTRANSFERASE 26 IU/L (13-69); ALBUMIN 3.2 g/dl (3.3-4.9); ALBUMIN/GLOBULIN RATIO 1.28; ALKALINE PHOSPHATASE 75 IU/L (42-121); AMYLASE 78 U/L (11-123); ANION GAP 12 (8-16); ASPARTATE AMINO TRANSFERASE 16 IU/L (15-46); BILIRUBIN,INDIRECT 0.2 mg/dl (0-1.1); BILIRUBIN,TOTAL 0.2 mg/dl (0.2-1.3); BLOOD UREA NITROGEN 36 mg/dl (7-20); CALCIUM 8.2 mg/dl (8.4-10.2); CARBON DIOXIDE 30 mmol/L (21-31); CHLORIDE 103 mmol/L (97-110); CREATININE 1.35 mg/dl (0.44-1.00); GLUCOSE 122 mg/dl (70-220); LIPASE 248 U/L (23-300); SODIUM 141 mmol/L (135-144); TOTAL PROTEIN 5.7 g/dl (6.1-8.1)
[2018-04-17] MEDS: INSULIN ASPART [NOVOLOG] 3 ML PEN SC ×7 (08:00→20:41)
[2018-04-17] MEDS: TRIAMCINOLONE ACET 0.1% 15 GM CR TOP ×2 (09:00→20:41)
[2018-04-17] MEDS: ONDANSETRON 4 MG INJ IV (11:25)
[2018-04-17] MEDS: FLUTICASONE/VILANTEROL 200-25 INH DEVICE INH (11:25)
[2018-04-17] MEDS: ISOSORBIDE DINITRATE 10 MG TAB PO ×3 (13:00→20:38)
[2018-04-17] MEDS: FUROSEMIDE 40 MG INJ IV ×2 (15:06→18:12)
[2018-04-17] MEDS: METOPROLOL 25 MG TAB PO ×2 (15:33→20:39)
[2018-04-17] MEDS: DOCUSATE SODIUM 100 MG CAP PO (15:42)
[2018-04-17] MEDS: LINAGLIPTIN 5 MG TABLET PO ×2 (15:43→18:00)
[2018-04-17] MEDS: ASPIRIN 81 MG TAB PO (15:43)
[2018-04-17] MEDS: MEMANTINE 10 MG TAB PO ×2 (15:43→20:39)
[2018-04-17] MEDS: CLOPIDOGREL 75 MG TAB PO (15:43)
[2018-04-17] MEDS: LORATADINE 10 MG TAB PO (15:43)
[2018-04-17] MEDS: ESCITALOPRAM 10 MG TAB PO (15:43)
[2018-04-17] MEDS: ENOXAPARIN 30 MG/0.3 ML SYG SC (18:25)
[2018-04-17] MEDS: IMIPRAMINE 25 MG TAB PO (20:38)
[2018-04-17] MEDS: ATORVASTATIN 40 MG TAB PO (20:39)
[2018-04-17] MEDS: MONTELUKAST 10 MG TAB PO (20:40)
[2018-04-17] MEDS: INSULIN GLARGINE [LANTus] (100 UNITS/ML) SYG SC (21:30)
[2018-04-18] MEDS: traMADol 50 MG TAB PO (00:55)
[2018-04-18] MEDS: ALBUTEROL 0.083% (NEB) 2.5 MG/3 ML AMP NEB ×6 (01:11→20:19)
[2018-04-18] MEDS: ACCU-CHEK XX ×5 (02:00→22:02)
[2018-04-18] MEDS: PANTOPRAZOLE 40 MG INJ IV (06:16)
[2018-04-18 06:18] LABS: ADD MAN DIFF? NO
[2018-04-18 06:24] LABS: BASOPHILS % 0.2 % (0.0-2.0); EOSINOPHILS # 0.3 10^3/ul (0.0-0.5); EOSINOPHILS % 2.9 % (0.0-7.0); HEMATOCRIT 32.5 % (37.0-47.0); HEMOGLOBIN 9.6 g/dl (12.0-16.0); LYMPHOCYTES # 1.5 10^3/ul (0.8-2.9); LYMPHOCYTES % 13.4 % (15.0-51.0); MEAN CORPUSCULAR HEMOGLOBIN 27.2 pg (29.0-33.0); MEAN CORPUSCULAR HGB CONC 29.5 g/dl (32.0-37.0); MEAN CORPUSCULAR VOLUME 92.1 fl (82.0-101.0); MEAN PLATELET VOLUME 10.6 fl (7.4-10.4); MONOCYTE # 0.9 10^3/ul (0.3-0.9); MONOCYTES % 8.6 % (0.0-11.0); NEUTROPHIL # 8.1 10^3/ul (1.6-7.5); NEUTROPHILS % 74.2 % (39.0-77.0); PLATELET COUNT 145 10^3/UL (140-415); RED BLOOD COUNT 3.53 10^6/ul (4.20-5.40); RED CELL DISTRIBUTION WIDTH 16.1 % (11.5-14.5)
[2018-04-18 06:24] LABS: WHITE BLOOD COUNT 10.9 10^3/ul (4.8-10.8)
[2018-04-18 07:11] LABS: ANION GAP 14 (8-16); BLOOD UREA NITROGEN 49 mg/dl (7-20); CALCIUM 8.6 mg/dl (8.4-10.2); CARBON DIOXIDE 32 mmol/L (21-31); CHLORIDE 101 mmol/L (97-110); CREATININE 1.38 mg/dl (0.44-1.00); GLUCOSE 173 mg/dl (70-220); POTASSIUM 4.5 mmol/L (3.5-5.1); SODIUM 142 mmol/L (135-144)
[2018-04-18] MEDS: FLUTICASONE/VILANTEROL 200-25 INH DEVICE INH (08:36)
[2018-04-18] MEDS: FUROSEMIDE 40 MG INJ IV (08:36)
[2018-04-18] MEDS: ISOSORBIDE DINITRATE 10 MG TAB PO ×3 (08:37→21:29)
[2018-04-18] MEDS: MEMANTINE 10 MG TAB PO ×2 (08:37→21:29)
[2018-04-18] MEDS: DOCUSATE SODIUM 100 MG CAP PO (08:37)
[2018-04-18] MEDS: METOPROLOL 25 MG TAB PO ×2 (08:37→21:28)
[2018-04-18] MEDS: ESCITALOPRAM 10 MG TAB PO (08:37)
[2018-04-18] MEDS: CLOPIDOGREL 75 MG TAB PO (08:37)
[2018-04-18] MEDS: ASPIRIN 81 MG TAB PO (08:37)
[2018-04-18] MEDS: LORATADINE 10 MG TAB PO (08:38)
[2018-04-18] MEDS: TRIAMCINOLONE ACET 0.1% 15 GM CR TOP ×2 (08:38→21:00)
[2018-04-18] MEDS: LINAGLIPTIN 5 MG TABLET PO (08:38)
[2018-04-18] MEDS: INSULIN ASPART [NOVOLOG] 3 ML PEN SC ×7 (08:48→21:44)
[2018-04-18] MEDS: MAGNESIUM HYDROXIDE 30ML CUP PO (14:10)
[2018-04-18] MEDS: ENOXAPARIN 30 MG/0.3 ML SYG SC (17:23)
[2018-04-18] MEDS: IMIPRAMINE 25 MG TAB PO (21:28)
[2018-04-18] MEDS: ATORVASTATIN 40 MG TAB PO (21:28)
[2018-04-18] MEDS: MONTELUKAST 10 MG TAB PO (21:29)
[2018-04-18] MEDS: INSULIN GLARGINE [LANTus] (100 UNITS/ML) SYG SC (21:43)
[2018-04-19] MEDS: ALBUTEROL 0.083% (NEB) 2.5 MG/3 ML AMP NEB ×5 (01:00→16:52)
[2018-04-19] MEDS: ACCU-CHEK XX ×4 (02:00→17:14)
[2018-04-19 05:39] LABS: ADD MAN DIFF? NO; BASOPHILS % 0.1 % (0.0-2.0); EOSINOPHILS # 0.4 10^3/ul (0.0-0.5); EOSINOPHILS % 4.5 % (0.0-7.0); HEMATOCRIT 31.3 % (37.0-47.0); HEMOGLOBIN 9.5 g/dl (12.0-16.0); LYMPHOCYTES % 11.1 % (15.0-51.0); MEAN CORPUSCULAR HEMOGLOBIN 27.6 pg (29.0-33.0); MEAN CORPUSCULAR HGB CONC 30.4 g/dl (32.0-37.0); MEAN PLATELET VOLUME 10.3 fl (7.4-10.4); MONOCYTE # 0.7 10^3/ul (0.3-0.9); MONOCYTES % 7.8 % (0.0-11.0); NEUTROPHIL # 6.9 10^3/ul (1.6-7.5); NEUTROPHILS % 75.8 % (39.0-77.0); PLATELET COUNT 136 10^3/UL (140-415); RED BLOOD COUNT 3.44 10^6/ul (4.20-5.40); RED CELL DISTRIBUTION WIDTH 15.9 % (11.5-14.5)
[2018-04-19 05:39] LABS: WHITE BLOOD COUNT 9.1 10^3/ul (4.8-10.8)
[2018-04-19] MEDS: PANTOPRAZOLE 40 MG INJ IV (06:01)
[2018-04-19 06:18] LABS: ANION GAP 9 (8-16); BLOOD UREA NITROGEN 43 mg/dl (7-20); CALCIUM 8.3 mg/dl (8.4-10.2); CARBON DIOXIDE 34 mmol/L (21-31); CHLORIDE 102 mmol/L (97-110); CREATININE 1.31 mg/dl (0.44-1.00); GLUCOSE 197 mg/dl (70-220); SODIUM 141 mmol/L (135-144)
[2018-04-19] MEDS: FUROSEMIDE 40 MG INJ IV (07:33)
[2018-04-19] MEDS: FLUTICASONE/VILANTEROL 200-25 INH DEVICE INH (07:33)
[2018-04-19] MEDS: MEMANTINE 10 MG TAB PO (07:34)
[2018-04-19] MEDS: ESCITALOPRAM 10 MG TAB PO (07:34)
[2018-04-19] MEDS: ASPIRIN 81 MG TAB PO (07:34)
[2018-04-19] MEDS: DOCUSATE SODIUM 100 MG CAP PO (07:34)
[2018-04-19] MEDS: CLOPIDOGREL 75 MG TAB PO (07:34)
[2018-04-19] MEDS: ISOSORBIDE DINITRATE 10 MG TAB PO ×2 (07:34→12:16)
[2018-04-19] MEDS: METOPROLOL 25 MG TAB PO (07:35)
[2018-04-19] MEDS: LORATADINE 10 MG TAB PO (07:35)
[2018-04-19] MEDS: TRIAMCINOLONE ACET 0.1% 15 GM CR TOP (07:35)
[2018-04-19] MEDS: LINAGLIPTIN 5 MG TABLET PO (07:35)
[2018-04-19] MEDS: INSULIN ASPART [NOVOLOG] 3 ML PEN SC ×6 (07:42→17:15)
[2018-04-19] MEDS: ENOXAPARIN 30 MG/0.3 ML SYG SC (17:15)
== END 2018-04-19 19:00 | disposition home health service (06) | DRG 280 ==
LOC: MS4 22:53 → 6WM 03-29 09:12 → E/R 19:42 → 6WM 04-09 23:44 → ICU 20:51
PROC: C22G1ZZ Tomographic (Tomo) Nuclear Medicine Imaging of Myocardium using Technetium 99m (Tc-99m) (ICD-10-PCS; principal; 2018-03-29)
PROC: 4A02XM4 Measurement of Cardiac Total Activity, External Approach (ICD-10-PCS; 2018-03-29)
PROC: 3E033HZ Introduction of Radioactive Substance into Peripheral Vein, Percutaneous Approach (ICD-10-PCS; 2018-03-29)
DX: I13.0 Hypertensive heart and chronic kidney disease with heart failure and stage 1 through stage 4 chronic kidney disease, or unspecified chronic kidney disease (principal); I21.A1 Myocardial infarction type 2; J18.9 Pneumonia, unspecified organism; N17.0 Acute kidney failure with tubular necrosis; I50.33 Acute on chronic diastolic (congestive) heart failure; J96.22 Acute and chronic respiratory failure with hypercapnia; J96.21 Acute and chronic respiratory failure with hypoxia; E66.01 Morbid (severe) obesity due to excess calories; Z68.37 Body mass index [BMI] 37.0-37.9, adult; Z79.52 Long term (current) use of systemic steroids; F32.9 Major depressive disorder, single episode, unspecified; I25.10 Atherosclerotic heart disease of native coronary artery without angina pectoris; I35.0 Nonrheumatic aortic (valve) stenosis; Z95.5 Presence of coronary angioplasty implant and graft; D69.6 Thrombocytopenia, unspecified; Z95.3 Presence of xenogenic heart valve; E11.65 Type 2 diabetes mellitus with hyperglycemia; E78.5 Hyperlipidemia, unspecified; E11.22 Type 2 diabetes mellitus with diabetic chronic kidney disease; M17.0 Bilateral primary osteoarthritis of knee; E79.0 Hyperuricemia without signs of inflammatory arthritis and tophaceous disease; G47.33 Obstructive sleep apnea (adult) (pediatric); J45.40 Moderate persistent asthma, uncomplicated; K21.9 Gastro-esophageal reflux disease without esophagitis; E11.51 Type 2 diabetes mellitus with diabetic peripheral angiopathy without gangrene; N18.3 Chronic kidney disease, stage 3 (moderate); I65.22 Occlusion and stenosis of left carotid artery
CPT/HCPCS: 36415; 36600; 71045; 73562-50; 74176; 78452; 80048; 80053; 80061; 80202; 81003; 82150; 82533; 82550; 82553; 82565; 82570; 82803; 82962; 83036; 83540; 83605; 83690; 83735; 83880; 84300; 84443; 84484; 84520; 84560; 85025; 85610; 85730; 86803; 87040; 87081; 89190; 93005; 93017; 93306; 93880; 94640; 94644; 94660; 96365; 96375; 97110; 97116; 97161; 97530; 99285-25